=== PATIENT | male | born 1945 | race Caucasian/White ===

== ENCOUNTER 2021-01-27 16:43 | Inpatient (IN) ==
--- NOTE | 2021-01-27 17:06 | Emergency Department Note ---
HPI <Diamond Encarnacion PA-C - Last Filed: 01/27/21 20:32> General Chief complaint: Extremity Injury, Lower Stated complaint: hip pain Time Seen by Provider: 01/27/21 17:04 Source: EMS Mode of arrival: EMS Limitations: physical limitation History of Present Illness HPI Narrative: Narrative: Patient presents by EMS with a complaint of fall. Patient lost his balance which caused him to fall. He did strike the right side of his face and is having right hip pain. He was unable to get up and was lying on the ground for a couple of hours prior to being discovered. EMS noted pain to the proximal right leg and hip on palpation. No obvious deformity. They did not note any internal or external rotation. He has abrasions to his hands and an abrasion with hematoma to the right forehead. He did not lose consciousness. He is complaining to pain in the right hip. He is also having some right rib pain but that is from a fall a few days ago. Pain is primarily in the right ribs to the back. He does not recall when his last tetanus shot was. It has been more than 5 years Related Data Home Medications Medication Instructions Recorded Confirmed aspirin 81 mg PO QDAY 05/04/20 01/28/21 atorvastatin 20 mg PO QDAY 05/04/20 01/28/21 finasteride 5 mg PO DAILY 05/04/20 01/28/21 fluoxetine 20 mg PO DAILY 05/04/20 01/28/21 lisinopril 10 mg PO QDAY 05/04/20 01/28/21 loperamide [Imodium A-D] 2 mg PO QID PRN 05/04/20 01/28/21 melatonin 5 mg PO HS PRN 05/04/20 01/28/21 nitroglycerin 0.4 mg SUBLINGUAL Q5M PRN 05/04/20 01/28/21 omeprazole 20 mg PO DAILY 05/04/20 01/28/21 oxycodone-acetaminophen [Percocet] 1 tab PO Q6H PRN 05/04/20 01/28/21 alfuzosin 10 mg tablet,extended 10 mg PO QDAY 07/30/20 09/03/20 release 24 hr duloxetine 60 mg capsule,delayed See Rx Instructions PO .COMPLEX 07/30/20 release multivitamin 1 tab PO QDAY 07/30/20 09/03/20 pramipexole 0.125 mg tablet See Rx Instructions PO .COMPLEX 07/30/20 01/28/21 lisinopril 20 mg tablet 10 mg PO tab 09/03/20 09/03/20 Previous Rx's Medication Instructions Recorded oxycodone-acetaminophen 1 tab PO Q6H PRN #12 tab 11/15/20 Allergies Allergy/AdvReac Type Severity Reaction Status Date / Time tamsulosin [From Flomax] Allergy Unknown Unknown Verified 01/27/21 16:51 Review of Systems <Diamond Encarnacion PA-C - Last Filed: 01/27/21 20:32> ROS ROS Narrative: Narrative: Pertinent positives and negatives as noted in HPI. All other systems reviewed and negative. PFSH <Diamond Encarnacion PA-C - Last Filed: 01/27/21 20:32> Narrative Patient History Narrative: Narrative: Medical/Surgical/Family History All Active Problems (Updated 01/27/21 @ 20:32 by Diamond Encarnacion PA-C) Back pain (Acute) Closed fracture of right hip (Acute) Cavitary lesion of lung (Acute) Lesion of left lung (Acute) RLS (restless legs syndrome) (Chronic) Drug-induced hepatotoxicity (Chronic) BPH (benign prostatic hyperplasia) (Chronic) Insomnia (Chronic) Hyperlipidemia (Chronic) Atherosclerosis of [place] coronary artery without angina pectoris (Chronic) VALENTINO (dyspnea on exertion) (Chronic) COPD (chronic obstructive pulmonary disease) (Chronic) Abdominal aneurysm without mention of rupture (Chronic) 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) Opioid dependence (Chronic) Spinal stenosis (Chronic) Depression (Chronic) Hypertension (Chronic) Basal cell carcinoma of skin (Chronic) Chronic bronchitis (Chronic) GERD (gastroesophageal reflux disease) (Chronic) Low back pain (Chronic) Chronic pain (Chronic) halfway (current) use of opiate analgesic (Chronic) Cigarette smoker (Chronic) History of myocardial infarction (Chronic) Atypical chest pain (Chronic) Medical History Abdominal aneurysm without mention of rupture Atherosclerosis of [place] coronary artery without angina pectoris Basal cell carcinoma of skin BPH (benign prostatic hyperplasia) Chronic bronchitis Chronic pain Cigarette smoker COPD (chronic obstructive pulmonary disease) Degenerative joint disease of low back Depression VALENTINO (dyspnea on exertion) Drug-induced hepatotoxicity GERD (gastroesophageal reflux disease) History of myocardial infarction Hyperlipidemia Hypertension 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 Skin: Warm. Dry. No rash. Normal color. Head: Abrasion with dried blood and hematoma to the right forehead. No crepitus. Eyes: PERRL. EOMI. no hyphema Mouth: Dry mucous membranes. Neck: Good ROM. No meningeal signs. Supple. No step-offs or crepitus on palpation. No tenderness Cardiovascular: Regular rate and rhythm. No murmur. Respiratory: No respiratory distress. Breath sounds equal. Gastrointestinal: Abdomen soft. No tenderness. No distention. Normal bowel sounds. No rebound tenderness or guarding. Back: Mild midline tenderness to the thoracic spine. No step-off or obvious deformity. Tenderness palpation of the right posterior, inferior ribs. No crepitus or obvious deformity. No contusion or abrasion. Extremities: Tenderness to the right hip. No obvious deformity. No swelling. No erythema. No edema. Good peripheral pulses x 4. Abrasions to the dorsum of the right hand Neurological: No focal neurological deficits observed. Alert. Oriented x 3 General Limitations: physical limitation Course <Diamond Encarnacion PA-C - Last Filed: 01/27/21 20:32> Course Course Narrative: IVs established. Patient medicated with Dilaudid for pain. Tetanus booster given. Labs ordered reviewed CT of the brain, cervical spine, chest abdomen pelvis without contrast are ordered reported by radiology to be significant for right intertrochanteric hip fracture. There are old rib fractures identified but no acute fractures. Patient does have a cavernous spiculated mass in the right lower lung lobe as well as a noncavernous spiculated mass in the left lower lobe. I did inquire whether or not the patient had had any recent imaging of his lungs and was lower lungs bilaterally. He was not. He is counseled that this will need further evaluation after he is discharged from his hip surgery. Patient discussed with on-call orthopedic surgeon Dr. Mckeon who plans to take the patient to surgery at the end of his previously scheduled cases tomorrow. Given the patient's prior history of COPD as well as the CT of the chest patient is also discussed with the hospitalist for admission. He is also accepted the hospital service. Vital Signs Vital signs: Vital Signs Temperature 97.9 F 01/27/21 16:44 Pulse Rate 89 01/27/21 16:44 Respiratory Rate 18 01/27/21 16:44 Pulse Oximetry (%) 96 01/27/21 16:44 Temperature 98.7 F 01/27/21 21:40 Pulse Rate 89 01/27/21 21:40 Respiratory Rate 26 H 01/27/21 21:40 Blood Pressure 169/73 01/27/21 21:40 Pulse Oximetry (%) 90 01/27/21 21:40 [facility] <Diamond Encarnacion PA-C - Last Filed: 01/27/21 20:32> [facility] Narrative Medical decision making narrative: Narrative: Lab Data Result diagrams: 01/27/21 17:05 01/27/21 17:05 Labs: Lab Results 01/27/21 01/27/21 01/27/21 Range/Units 17:05 17:05 17:05 WBC 15.5 H (4.5-11.0) K/mcL RBC 4.69 (4.63-6.08) M/mcL Hgb 13.5 L (13.7-17.5) g/dL Hct 39.0 L (40.1-51.0) % POC Hct 42 (41-55) % MCV 83.2 (80.0-100.0) fL MCH 28.8 (26.0-34.0) pg MCHC 34.6 (31.0-36.0) g/dL RDW 17.0 H (11.5-14.5) % Plt Count 384 (140-440) K/mcL MPV 8.9 (7.4-10.4) fL Neut % (Auto) 88.9 H (38.0-78.0) % Lymph % (Auto) 4.8 L (15.5-49.0) % Yell % (Auto) 5.9 (1.0-12.0) % Eos % (Auto) 0.2 (0.0-7.0) % Baso % (Auto) 0.2 (0.0-2.0) % Lymph # (Auto) 0.75 L (1.50-4.80) K/mcL Yell # (Auto) 0.91 H (0.10-0.90) K/mcL Eos # (Auto) 0.03 (0.00-0.70) K/mcL Baso # (Auto) 0.03 (0.00-0.30) K/mcL Absolute Neutrophils 13.77 H (1.80-8.00) K/mcL POC Sodium 135 (133-145) mEq/L Sodium 133 (133-145) mmol/L POC Potassium 3.2 L (3.3-5.1) mEql/L Potassium 3.1 L (3.3-5.1) mmol/L POC Chloride 97 (96-108) mEq/L Chloride 95 L (96-108) mmol/L Carbon Dioxide 24 (22-30) mmol/L POC Total CO2 24 (22-30) mmol/L Anion Gap 14.0 (8.0-16.0) POC BUN 4 L (6-20) mg/dL BUN 5 L (8-23) mg/dL Creatinine 0.7 (0.7-1.2) mg/dL POC Creatinine 0.6 (0.6-1.2) mg/dL GFR Calculation 92 Glucose 91 (70-105) mg/dL POC Glucose 90 (70-105) mg/dL Calcium 9.4 (8.6-10.4) mg/dL POC WB Ioniz Calcium 1.13 L (1.16-1.32) mmEq/L Total Bilirubin 0.9 (0.1-1.0) mg/dL AST 22 (<40) U/L ALT 14 (<40) U/L Alkaline Phosphatase 142 H (39-117) U/L Troponin T < 0.01 (<0.03) ng/mL NT-Pro-B Natriuret Pep (<450.0) pg/mL Total Protein 6.9 (5.9-8.4) gm/dL Albumin 3.8 (3.2-5.2) gm/dL Globulin 3.1 (2.2-3.7) gm/dL Albumin/Globulin Ratio 1.2 (1.0-2.3) 01/27/21 Range/Units 17:05 WBC (4.5-11.0) K/mcL RBC (4.63-6.08) M/mcL Hgb (13.7-17.5) g/dL Hct (40.1-51.0) % POC Hct (41-55) % MCV (80.0-100.0) fL MCH (26.0-34.0) pg MCHC (31.0-36.0) g/dL RDW (11.5-14.5) % Plt Count (140-440) K/mcL MPV (7.4-10.4) fL Neut % (Auto) (38.0-78.0) % Lymph % (Auto) (15.5-49.0) % Yell % (Auto) (1.0-12.0) % Eos % (Auto) (0.0-7.0) % Baso % (Auto) (0.0-2.0) % Lymph # (Auto) (1.50-4.80) K/mcL Yell # (Auto) (0.10-0.90) K/mcL Eos # (Auto) (0.00-0.70) K/mcL Baso # (Auto) (0.00-0.30) K/mcL Absolute Neutrophils (1.80-8.00) K/mcL POC Sodium (133-145) mEq/L Sodium (133-145) mmol/L POC Potassium (3.3-5.1) mEql/L Potassium (3.3-5.1) mmol/L POC Chloride (96-108) mEq/L Chloride (96-108) mmol/L Carbon Dioxide (22-30) mmol/L POC Total CO2 (22-30) mmol/L Anion Gap (8.0-16.0) POC BUN (6-20) mg/dL BUN (8-23) mg/dL Creatinine (0.7-1.2) mg/dL POC Creatinine (0.6-1.2) mg/dL GFR Calculation Glucose (70-105) mg/dL POC Glucose (70-105) mg/dL Calcium (8.6-10.4) mg/dL POC WB Ioniz Calcium (1.16-1.32) mmEq/L Total Bilirubin (0.1-1.0) mg/dL AST (<40) U/L ALT (<40) U/L Alkaline Phosphatase (39-117) U/L Troponin T (<0.03) ng/mL NT-Pro-B Natriuret Pep 1103.0 H (<450.0) pg/mL Total Protein (5.9-8.4) gm/dL Albumin (3.2-5.2) gm/dL Globulin (2.2-3.7) gm/dL Albumin/Globulin Ratio (1.0-2.3) ED POC Tests ED POC Tests: KARL - SARS Antigen Negative Discharge Plan Patient/Caregiver Discharge Instructions Pt seen by REVENUE ACCOUNTANT/PA only: Yes Clinical Impression: Cavitary lesion of lung, Lesion of left lung Closed fracture of right hip Qualifiers: Encounter type: initial encounter Qualified Code(s): S72.001A - Fracture of unspecified part of neck of right femur, initial encounter for closed fracture Patient Disposition: Xfer As Outpt/Obs ([facility]) Discharge Date/Time: 01/27/21 21:46
[2021-01-27] MEDS ORDERED: 0.9 % SODIUM CHLORIDE 1,000 ML IV ONE (17:10)
[2021-01-27] MEDS ORDERED: DIPH,PERTUSS(ACELL),TET VAC/PF 0.5 ML SYRINGE IM ONE (17:10)
[2021-01-27 17:23] LABS: POC Blood Urea Nitrogen 4 mg/dL (6-20); POC CO2 24 mmol/L (22-30); POC Calcium, Ionized 1.13 mmEq/L (1.16-1.32); POC Chloride 97 mEq/L (96-108); POC Creatinine 0.6 mg/dL (0.6-1.2); POC Glucose, Random 90 mg/dL (70-105); POC Hematocrit 42 % (41-55); POC Potassium 3.2 mEql/L (3.3-5.1); POC Sodium 135 mEq/L (133-145)
[2021-01-27] MEDS: HYDROmorphone 0.5 MG/0.5 ML SYRINGE IV PRN ×3 (17:34→21:54)
[2021-01-27 17:51] LABS: Basophils # (Auto) 0.03 K/mcL (0.00-0.30); Basophils % (Auto) 0.2 % (0.0-2.0); Eosinophils # (Auto) 0.03 K/mcL (0.00-0.70); Eosinophils % (Auto) 0.2 % (0.0-7.0); Hemoglobin 13.5 g/dL (13.7-17.5); Lymphocytes # (Auto) 0.75 K/mcL (1.50-4.80); Lymphocytes % (Auto) 4.8 % (15.5-49.0); Mean Cell Volume 83.2 fL (80.0-100.0); Mean Corpuscular HGB Conc 34.6 g/dL (31.0-36.0); Mean Platelet Volume 8.9 fL (7.4-10.4); Monocytes # (Auto) 0.91 K/mcL (0.10-0.90); Monocytes % (Auto) 5.9 % (1.0-12.0); Neutrophils % (Auto) 88.9 % (38.0-78.0); Platelet Count 384 K/mcL (140-440); RBC 4.69 M/mcL (4.63-6.08); WBC 15.5 K/mcL (4.5-11.0)
[2021-01-27 18:10] LABS: ALT/SGPT 14 U/L (<40); AST/SGOT 22 U/L (<40); Albumin 3.8 gm/dL (3.2-5.2); Albumin/Globulin Ratio 1.2 (1.0-2.3); Alkaline Phosphatase 142 U/L (39-117); Bilirubin,Total 0.9 mg/dL (0.1-1.0); Blood Urea Nitrogen 5 mg/dL (8-23); Calcium 9.4 mg/dL (8.6-10.4); Carbon Dioxide 24 mmol/L (22-30); Chloride 95 mmol/L (96-108); Globulin 3.1 gm/dL (2.2-3.7); Glomerular Filtration Rate 92; Glucose 91 mg/dL (70-105)
--- NOTE | 2021-01-27 18:36 | Cat Scan Report ---
History: Fell with multiple injuries and right hip pain TECHNIQUE: The patient was imaged without contrast in axial plane at 2.5 mm intervals from the thoracic inlet through the hips. Sagittal coronal and axial MIPS images were created. The radiation exposure was limited using dose reduction technology. FINDINGS: CHEST: Patient has moderate COPD and there is bronchiectasis. There is bronchiectasis is in the upper lobes. There is a peripheral infiltrate at the right apex measuring approximately 3 cm in size with several air bronchograms within it. This could be a combination of scar and inflammation. Posteriorly in the midportion left lower lobe on axial image #76 there is a well-circumscribed homogeneous noncalcified nodule which measures 9 x 12 mm. In the lateral basal segment of the right lower lobe there is a peripheral spiculated lesion with central cavitation. It measures 2.5 x 3.3 cm. No pneumothorax or pleural effusion are present. There is mucus plugging in several bronchi is also moderate amount mucous in the trachea and mainstem bronchi. The heart is normal in size and contour. There is no mediastinal hemorrhage. Large amount calcified plaque is present in the coronary arteries. No fracture is seen within the thorax. Abdomen and pelvis: Evaluation of abdominal organs without contrast is somewhat limited. There is no evidence of lacerated abdominal organ. Liver and spleen are normal in size. Gallbladder is relatively small. It may be a small stone in the neck. Bile ducts are nondilated. There is atrophy of the pancreas. The adrenals and kidneys are normal. There is a fusiform aneurysm of the abdominal aorta which measures 3.7 x 4.7 cm. There is an endograft in the aorta extending from the level renal arteries to the iliac arteries. No intra-abdominal hematoma is present and there is no free intra-abdominal air. The bowel pattern is normal. Urinary bladder is distended but appears normal. The prostate is moderately enlarged. There is an acute intertrochanteric fracture of the proximal right femur. The femoral head is normal. No pelvic fractures present. There is degenerative disc disease and arthritis at multiple levels in the spine. IMPRESSION: Acute intertrochanteric fracture of the right proximal femur. No acute abdominal injury. Abdominal aorta aneurysm which has been treated with an endograft. COPD with scarring and bronchiectasis Spiculated lesion in the right lower lobe with central cavitation which could be due to scar, infection or tumor. Nonspecific 9 x 12 mm nodule in the left lower lobe Diamond Encarnacion was called with the report Interpreted and Authenticated by: Zack Rice 01/27/21
--- NOTE | 2021-01-27 18:37 | Cat Scan Report ---
History: Fell with head injury TECHNIQUE: The brain was imaged without contrast in axial plane at 2.5 mm intervals. The radiation exposure was limited using dose reduction technology. FINDINGS: There is mild soft tissue swelling in the scalp lateral to the right frontal bone. No skull fractures present. There is no intracranial hemorrhage, cerebral edema or infarct or mass effect. There are stable age-related degenerative changes with mild atrophy and mild white matter disease in the frontal and parietal lobes. The ventricles are normal in size line for atrophy. There is no abnormal extra-axial fluid collection. Comparison with the prior exam done on 09/23/20 shows no change except for the scalp swelling. IMPRESSION: Age-related degenerative changes and no evidence of acute brain injury Mild scalp swelling on the right side Diamond Encarnacion was called with the report Interpreted and Authenticated by: Zack Rice 01/27/21
--- NOTE | 2021-01-27 18:37 | Cat Scan Report ---
History: Fell with neck injury TECHNIQUE: The neck was imaged without contrast in axial plane at 2.5 mm intervals from the skull base to the upper thoracic spine. Sagittal and coronal reformats were created. The radiation exposure was limited using dose reduction technology. FINDINGS: There is no fracture or evidence of acute neck injury. There is chronic degenerative disc disease and arthritis at multiple levels. Is also moderate arthritis at the articulation of the odontoid and anterior ring of C1. Moderate to severe disc space narrowing is present at C4-5, C5-6, C6-7, C7-T1 and T1-2. There were medium-size anterior osteophytes in the mid cervical spine. There is also arthritis in the facets and spurring of the uncinate processes from C2-3 through C6-7. The greatest degeneration is at C4-5 and there is moderate spinal canal stenosis at that level. There is also spurring of the uncinate processes causing stenosis of the neural foramina bilaterally. There is severe foraminal stenosis on the right at C3-4, bilaterally at C4-5 and moderate stenosis bilaterally at C5-C6. No paraspinal hematoma is present. Patient has moderate COPD in both lung apices. There is consolidated lung parenchyma in the right apex with several air bronchograms. Consolidation could be due to inflammation or scar. IMPRESSION: No fracture Advanced degenerative disc disease and arthritis throughout the neck with moderate spinal canal stenosis at C4-5 Moderate COPD Diamond Encarnacion was called with the report Interpreted and Authenticated by: Zack Rice 01/27/21
--- NOTE | 2021-01-27 20:24 | Internal Med History&Physical ---
HPI History of Present Illness Patient information: Note initiated : 01/27/21 at 8:05 pm Service Date, if different from initiated Date: [] Patient: Curt Hall a 75 y/o M admitted on for hip pain. Chief Complaint: [hip pain] History of present illness: Mr. Hall is a 75 year old male with a history of hypertension, CAD, COPD, AAA s/p endograft, GERD, BPH, restless legs syndrome, spinal stenosis who is on chronic oral opioids who had a mechanical fall complicated by a right intertrochanteric proximal femur fracture. The patient hit his head when he fell. In the ED the patient underwent a minor trauma workup with noncontrast CT head, cervical spine, chest, abdomen, pelvis. In addition to the femur fracture the workup revealed a 2.5 x 3.3 cm right lower lobe peripheral spiculated lesion with central cavitation concerning for malignancy or infection. There was also a nonspecific 9/1.2 cm nodule in the left lower lung lobe. Vitals were relatively stable. CBC is remarkable for leukocytosis, chemistry panel showed mild hypokalemia. The ED provider, Diamond Encarnacion, discussed the patient with orthopedic surgery who agreed to perform surgical correction. [facility] medicine was asked to admit the patient for hip fracture with orthopedic surgery consulting. Review of systems Constitutional: no fevers, positive for unintentional weight loss Eyes: no vision changes or pain Cardiovascular: no chest pain, no palpitations Respiratory: no cough or dyspnea Gastrointestinal: no abdominal pain, no nausea, vomiting, or diarrhea Genitourinary: no dysuria or difficulty voiding Musculoskeletal: positive for right hip pain Integumentary: forehead laceration Neurological: no focal weakness or numbness Psychiatric: no anxiety or depression Physical exam General: thin chronically ill appearing male in no distress Head: laceration on right forehead Eyes: normal appearance, no scleral icterus. Neck: full ROM Respiratory: no respiratory distress. Cardiovascular: normal rate and rhythm, S1, S2. GI/Abdominal: soft, nontender, no guarding. Extremities: right hip tenderness, externally rotated right lower extremity Neurological: CN II-XII intact, intact motor, intact sensation. Psychiatric: normal mood. Skin: warm, normal color PFSH PFSH All Active Problems (Updated 01/27/21 @ 20:32 by Diamond Encarnacion PA-C) Back pain (Acute) Closed fracture of right hip (Acute) Cavitary lesion of lung (Acute) Lesion of left lung (Acute) RLS (restless legs syndrome) (Chronic) Drug-induced hepatotoxicity (Chronic) BPH (benign prostatic hyperplasia) (Chronic) Insomnia (Chronic) Hyperlipidemia (Chronic) Atherosclerosis of [place] coronary artery without angina pectoris (Chronic) VALENTINO (dyspnea on exertion) (Chronic) COPD (chronic obstructive pulmonary disease) (Chronic) Abdominal aneurysm without mention of rupture (Chronic) 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) Opioid dependence (Chronic) Spinal stenosis (Chronic) Depression (Chronic) Hypertension (Chronic) Basal cell carcinoma of skin (Chronic) Chronic bronchitis (Chronic) GERD (gastroesophageal reflux disease) (Chronic) Low back pain (Chronic) Chronic pain (Chronic) 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) Cigarette smoker (Chronic) History of myocardial infarction (Chronic) Atypical chest pain (Chronic) Medical History Abdominal aneurysm without mention of rupture Atherosclerosis of [place] coronary artery without angina pectoris Basal cell carcinoma of skin BPH (benign prostatic hyperplasia) Chronic bronchitis Chronic pain Cigarette smoker COPD (chronic obstructive pulmonary disease) Degenerative joint disease of low back Depression VALENTINO (dyspnea on exertion) Drug-induced hepatotoxicity GERD (gastroesophageal reflux disease) History of myocardial infarction Hyperlipidemia Hypertension 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 Low back pain Opioid dependence RLS (restless legs syndrome) Spinal stenosis Surgical History History of coronary artery stent placement single; RCA 80% History of skin cancer skin cancer removal Family History Other No pertinent family history Social History (Updated 08/27/20 @ 15:38 by Millie Rivera) marital status: education level: college occupational status: retired smoking status: Current every day smoker alcohol intake frequency: does not drink substance use type: marijuana MEDS/ALLERGIES Home Medications and Allergies Home Medications Medication Instructions Recorded Confirmed Type aspirin 81 mg PO QDAY 05/04/20 09/03/20 History atorvastatin 20 mg PO QDAY 05/04/20 09/03/20 History finasteride 5 mg PO DAILY 05/04/20 09/03/20 History fluoxetine 20 mg PO DAILY 05/04/20 09/03/20 History lisinopril 10 mg PO QDAY 05/04/20 09/03/20 History loperamide [Imodium A-D] 2 mg PO QID PRN 05/04/20 09/03/20 History melatonin 5 mg PO HS PRN 05/04/20 09/03/20 History nitroglycerin 0.4 mg SUBLINGUAL Q5M PRN 05/04/20 09/03/20 History omeprazole 20 mg PO DAILY 05/04/20 09/03/20 History oxycodone-acetaminophen [Percocet] 1 tab PO Q6H PRN 05/04/20 09/03/20 History alfuzosin 10 mg tablet,extended 10 mg PO QDAY 07/30/20 09/03/20 History release 24 hr duloxetine 60 mg capsule,delayed See Rx Instructions PO .COMPLEX 07/30/20 09/03/20 History release multivitamin 1 tab PO QDAY 07/30/20 09/03/20 History pramipexole 0.125 mg tablet See Rx Instructions PO .COMPLEX 07/30/20 09/03/20 History lisinopril 20 mg tablet 10 mg PO tab 09/03/20 09/03/20 History oxycodone-acetaminophen 1 tab PO Q6H PRN #12 tab 11/15/20 Rx Allergies Allergy/AdvReac Type Severity Reaction Status Date / Time tamsulosin [From Flomax] Allergy Unknown Unknown Verified 01/27/21 16:51 EXAM Constitutional Vitals: Temp Pulse Resp BP Pulse Ox 97.9 F 94 H 22 155/94 97 01/27/21 16:44 01/27/21 19:17 01/27/21 19:17 01/27/21 19:17 01/27/21 19:17 DATA Data Completed and Pending Labs: Labs from last 24 hours 01/27/21 01/27/21 17:05 17:05 WBC 15.5 H RBC 4.69 Hgb 13.5 L Hct 39.0 L POC Hct 42 MCV 83.2 MCH 28.8 MCHC 34.6 RDW 17.0 H Plt Count 384 MPV 8.9 Neut % (Auto) 88.9 H Lymph % (Auto) 4.8 L [place] % (Auto) 5.9 Eos % (Auto) 0.2 Baso % (Auto) 0.2 Lymph # (Auto) 0.75 L [place] # (Auto) 0.91 H Eos # (Auto) 0.03 Baso # (Auto) 0.03 Absolute Neutrophils 13.77 H POC Sodium 135 Sodium 133 POC Potassium 3.2 L Potassium 3.1 L POC Chloride 97 Chloride 95 L Carbon Dioxide 24 POC Total CO2 24 Anion Gap 14.0 POC BUN 4 L BUN 5 L Creatinine 0.7 POC Creatinine 0.6 GFR Calculation 92 Glucose 91 POC Glucose 90 Calcium 9.4 POC WB Ioniz Calcium 1.13 L Total Bilirubin 0.9 AST 22 ALT 14 Alkaline Phosphatase 142 H Total Protein 6.9 Albumin 3.8 Globulin 3.1 Albumin/Globulin Ratio 1.2 A/P Narrative A/P Narrative: Assessment: 75 year old male with a history of hypertension, CAD, COPD, AAA s/p endograft, GERD, BPH, restless legs syndrome, spinal stenosis on chronic oral opioids had a mechanical fall that was complicated by a right intertrochanteric proximal femur fracture. Workup in the ED included a noncontrast CT chest that showed a 2.5 x 3.3 cm right lower lobe peripheral spiculated lesion with central cavitation concerning for malignancy or infection. #Right intertrochanteric femur fracture #Right lower lobe lesion concerning for malignancy vs infection #Hypoxia, possibly chronic #Leukocytosis likely stress induced #COPD #Bronchiectasis #Coronary artery disease, stable #Essential hypertension #AAA s/p endograft #Chronic pain on opioid (Percocet) #GERD #BPH #Unintentional weight loss #Tobacco use disorder Plan -Ok to proceed with surgery from medicine perspective however patient will be higher risk due to CAD and COPD. -Continue Aspirin (given higher risk of perioperative UT) and lisinopril. -Home medications reconciliation then resume essential meds. -Oxygen supplementation s/ goal sats 88-92%. -Albuterol nebs prn. -Potassium supplement. -Check procalcitonin, follow CBC -Analgesics prn. -Nicotine replacement. -Orthopedic surgery consult-Dr. Mckeon. -NPO at midnight. -PT consult -DVT ppx: per orthopedic surgery -Code status: DNR -Disposition: TBD, pulmonology follow up for lung lesion concerning for malignancy Time Spent With Patient Time: Total time spent is greater than 50% in coordination of care (as documented) at patient's floor/unit and/or counseling patient:
[2021-01-27] MEDS ORDERED: NALOXONE HCL 0.4 MG/ML VIAL IV PRN (21:46)
[2021-01-27] MEDS ORDERED: oxyCODONE/APAP 5/325MG TABLET PO PRN (21:46)
[2021-01-27] MEDS ORDERED: LABETALOL 5 MG/ML ML IV PRN (21:46)
[2021-01-27] MEDS ORDERED: ALBUTEROL SULFATE 2.5 MG/3 ML NEBULIZER NEB PRN (21:46)
[2021-01-27] MEDS ORDERED: ONDANSETRON 4 MG/2 ML VIAL IV PRN (21:46)
[2021-01-27] MEDS ORDERED: POTASSIUM CHLORIDE 20 MEQ TABLET PO ONE (21:46)
[2021-01-27] MEDS: 0.9 % SODIUM CHLORIDE 1,000 ML IV SCH (22:50)
[2021-01-28] MEDS: HYDROmorphone 0.5 MG/0.5 ML SYRINGE IV PRN ×3 (01:58→08:20)
[2021-01-28] MEDS: SENNOSIDES 1 TABLET PO SCH ×2 (01:58→20:48)
[2021-01-28] MEDS: 0.9 % SODIUM CHLORIDE 10 ML SYRINGE IV SCH ×4 (01:59→20:49)
[2021-01-28] MEDS ORDERED: IPRATROPIUM/ALBUTEROL 3 ML AMPUL.NEB NEB PRN ×2 (08:00→15:28)
[2021-01-28] MEDS ORDERED: SCOPOLAMINE 1 PATCH PATCH TOPICAL PRN (08:00)
[2021-01-28 08:26] LABS: Blood Urea Nitrogen 7 mg/dL (8-23); Calcium 8.6 mg/dL (8.6-10.4); Carbon Dioxide 22 mmol/L (22-30); Chloride 97 mmol/L (96-108); Glomerular Filtration Rate 98; Glucose 59 mg/dL (70-105)
[2021-01-28] MEDS ORDERED: POTASSIUM CHLORIDE 40 MEQ in DEXTROSE 5% IN WATER 500 ML IV ONE (10:00)
[2021-01-28] MEDS: ASPIRIN 81 MG TAB.CHEW CHEWED SCH (10:54)
[2021-01-28] MEDS: LISINOPRIL 20 MG TABLET PO SCH (10:54)
[2021-01-28] MEDS ORDERED: ceFAZolin 2 GM in DEXTROSE 5% IN WATER 50 ML IV SCH (14:30)
--- NOTE | 2021-01-28 14:30 | Orthopedic Consult Note ---
HPI Data of Consult Consult date: 01/28/21 Primary Care Provider: Becki Lopez Consult Narrative Patient Information: Note initiated : 01/28/21 at 2:23 pm Service Date, if different from initiated Date: [] Patient: Curt Hall 75 y/o M admitted on 01/27/21 for hip pain. Chief Complaint: Right peritrochanteric hip fracture Patient had a fall and then was unable to ambulate. A CT scan of the pelvis was performed. This identified a right peritrochanteric fracture femoral neck. Surgical fixation was advised. Patient consented the procedure aware and understanding of the risk. cc:: CC: Marcel Pearce MD Review of Systems Review of systems: 10 point review of systems was performed and was found normal except those mentioned on the HPI. Constitutional Constitutional: Present as per HPI PFSH PFSH All Active Problems (Updated 01/27/21 @ 20:32 by Diamond Encarnacion PA-C) Back pain (Acute) Closed fracture of right hip (Acute) Cavitary lesion of lung (Acute) Lesion of left lung (Acute) RLS (restless legs syndrome) (Chronic) Drug-induced hepatotoxicity (Chronic) BPH (benign prostatic hyperplasia) (Chronic) Insomnia (Chronic) Hyperlipidemia (Chronic) Atherosclerosis of [place] coronary artery without angina pectoris (Chronic) VALENTINO (dyspnea on exertion) (Chronic) COPD (chronic obstructive pulmonary disease) (Chronic) Abdominal aneurysm without mention of rupture (Chronic) 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) Opioid dependence (Chronic) Spinal stenosis (Chronic) Depression (Chronic) Hypertension (Chronic) Basal cell carcinoma of skin (Chronic) Chronic bronchitis (Chronic) GERD (gastroesophageal reflux disease) (Chronic) Low back pain (Chronic) Chronic 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 (Chronic) 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) Cigarette smoker (Chronic) History of myocardial infarction (Chronic) Atypical chest pain (Chronic) Medical History Abdominal aneurysm without mention of rupture Atherosclerosis of [place] coronary artery without angina pectoris Basal cell carcinoma of skin BPH (benign prostatic hyperplasia) Chronic bronchitis Chronic pain Cigarette smoker COPD (chronic obstructive pulmonary disease) Degenerative joint disease of low back Depression VALENTINO (dyspnea on exertion) Drug-induced hepatotoxicity GERD (gastroesophageal reflux disease) History of myocardial infarction Hyperlipidemia Hypertension Insomnia detention (current) use of opiate analgesic Low back pain Opioid dependence RLS (restless legs syndrome) Spinal stenosis Surgical History History of coronary artery stent placement single; RCA 80% History of skin cancer skin cancer removal Family History Other No pertinent family history Social History (Updated 08/27/20 @ 15:38 by Millie Rivera) marital status: education level: college occupational status: retired smoking status: Current every day smoker alcohol intake frequency: does not drink substance use type: marijuana MEDS/ALLERGIES Home Medications and Allergies Home Medications Medication Instructions Recorded Confirmed Type aspirin 81 mg PO QDAY 05/04/20 01/28/21 History atorvastatin 20 mg PO QDAY 05/04/20 01/28/21 History finasteride 5 mg PO DAILY 05/04/20 01/28/21 History fluoxetine 20 mg PO DAILY 05/04/20 01/28/21 History lisinopril 10 mg PO QDAY 05/04/20 01/28/21 History loperamide [Imodium A-D] 2 mg PO QID PRN 05/04/20 01/28/21 History melatonin 5 mg PO HS PRN 05/04/20 01/28/21 History nitroglycerin 0.4 mg SUBLINGUAL Q5M PRN 05/04/20 01/28/21 History omeprazole 20 mg PO DAILY 05/04/20 01/28/21 History oxycodone-acetaminophen [Percocet] 1 tab PO Q6H PRN 05/04/20 01/28/21 History alfuzosin 10 mg tablet,extended 10 mg PO QDAY 07/30/20 09/03/20 History release 24 hr duloxetine 60 mg capsule,delayed See Rx Instructions PO .COMPLEX 07/30/20 01/28/21 History release multivitamin 1 tab PO QDAY 07/30/20 09/03/20 History pramipexole 0.125 mg tablet See Rx Instructions PO .COMPLEX 07/30/20 01/28/21 History lisinopril 20 mg tablet 10 mg PO tab 09/03/20 09/03/20 History Allergies Allergy/AdvReac Type Severity Reaction Status Date / Time tamsulosin [From Flomax] Allergy Unknown Unknown Verified 01/27/21 16:51 Physical Examination Narrative Narrative: Narrative: Patient was seen and examined. Please see admission note for detailed exam. He was alert and oriented in bed. He had a mild cachectic appearance. Any movement of the right leg produced significant pain. A/P Time Spent With Patient Time: Total time spent is greater than 50% in coordination of care (as documented) at patient's floor/unit and/or counseling patient: Impression: Right basicervical/peritrochanteric hip fracture. Plan: Surgical fixation was advised in the form of a intramedullary nail with a cephalad screw. Main advantage of surgery is to permit more rapid mobilization and reduce the pain from the fracture. Risks of surgery were discussed in detail but include heart attack, stroke, , fixation failure, damage to the nerves and arteries and muscles in the leg and hip or infection. Patient understands these risks and wished to proceed with surgery.
[2021-01-28] MEDS ORDERED: MAGNESIUM SULFATE 2 GM/50 ML BAG IV ONE (14:44)
[2021-01-28] MEDS ORDERED: fentaNYL 100 MCG/2 ML VIAL IV ONE (14:44)
[2021-01-28] MEDS ORDERED: PROPOFOL 200 MG/20 ML VIAL IV ONE (14:44)
[2021-01-28] MEDS ORDERED: KETAMINE 50 MG/ML Syringe (ANEST) IV ONE (14:44)
[2021-01-28] MEDS ORDERED: PHENYLephrine 1 MG/10 ML SYRINGE (ANEST) ONE (14:44)
[2021-01-28] MEDS ORDERED: FLEETS ADULT ENEMA PR PRN (14:44)
[2021-01-28] MEDS ORDERED: BENZOCAINE/MENTHOL 1 LOZENGE PO PRN (14:44)
[2021-01-28] MEDS ORDERED: POLYETHYLENE GLYCOL 3350 17 GM PACKET PO PRN (14:44)
[2021-01-28] MEDS ORDERED: LIDOCAINE HCL/PF 100 MG/5 ML SYRINGE IV ONE (14:44)
[2021-01-28] MEDS ORDERED: GLYCOPYRROLATE 0.2 MG/ML VIAL IV ONE (14:44)
[2021-01-28] MEDS ORDERED: DEXAMETHASONE 10 MG/ML VIAL ONE (14:44)
[2021-01-28] MEDS ORDERED: TRANEXAMIC ACID 1,000 MG/10 ML VIAL ONE (14:44)
[2021-01-28] MEDS ORDERED: ONDANSETRON 4 MG/2 ML VIAL ONE (14:44)
[2021-01-28] MEDS ORDERED: LACTATED RINGERS 250 ML IV PRN (15:28)
[2021-01-28] MEDS ORDERED: METHOCARBAMOL 1,000 MG/10 ML VIAL IV PRN (15:28)
[2021-01-28] MEDS ORDERED: NALOXONE HCL 0.4 MG/ML VIAL IV PRN (15:28)
[2021-01-28] MEDS ORDERED: ACETAMINOPHEN 900 MG/90 ML BAG IV ONE (15:28)
[2021-01-28] MEDS ORDERED: LACTATED RINGERS 1,000 ML IV SCH (15:30)
--- NOTE | 2021-01-28 15:49 | Operative Note ---
Operative Note Operative Note: Pre-operative diagnosis: Right peritrochanteric femoral neck fracture Postoperative diagnosis: Same Procedure: Right hip short IM nail Implants: Synthes short TFN 10 mm, with 105 mm cephalad screw 38 mm distal locking screw Findings: Minimally displaced fracture near the base of the neck extending into the greater trochanter Complications: None Estimated Blood loss: 50 cc Assist: Rojas Feldman whose assistance was critical to safety and efficacy of the procedure DOS: January 28, 2021 Clinical note: The patient continues to suffer from the above mentioned diagnosis. He had a fall on concrete for reasons he is unsure of yesterday. He had pain in his hip. A CT scan of the pelvis was performed which revealed a minimally displaced peritrochanteric femur fracture. H&P: The patient was met outside the operating room and symptoms were reviewed and a physical exam performed. The patient demonstrated ongoing symptoms and signs as previously discussed. Risk versus benefits of the procedure were again discussed. Patient wished to proceed with the surgery aware and understanding of these risks. The operative site was marked. The patient was brought into the operating room and prepped and draped in the usual fashion supine on traction table. Traction was applied and the hip was imaged with fluoroscopy. This confirmed good reduction of the fracture both in AP and lateral views. We began by making an incision directly superior to the GT. A starting wire was introduced with the help of a starting awl directly on the tip of the GT using fluoroscopy to confirm trajectory. The canal was then opened with an entry reamer. A short IM nail of size scribed above was then introduced. This was advanced with a mallet until the trajectory of the cephalad screw is in line with the center of the femoral head. A guidewire was introduced to the center of the femoral head within 25 mm combined on both AP and lateral views of the apex. An incision was made on the lateral femur, and the lateral femoral cortex was opened through the trocar with a start drill, then the femoral neck was drilled in the usual fashion. A Cephalad screw was then inserted through the trocar into the center of the femoral head. Again using the guide a distal locking screw was inserted in the usual fashion securing the distal portion of the nail. Final fluoroscopy views were performed confirming the hip remained well reduced in the nail and locking screws were in good position. The wounds were then irrigated. They were closed with a heavy Vicryl suture for the deep layers followed by Monocryl and kena for the skin. A bulky dressing was applied. Patient was brought to PACU in good condition. They can be weightbearing as tolerated on that leg should follow-up with myself or the PA in 2 weeks time at [facility] for wound check and staple removal.
--- NOTE | 2021-01-28 15:49 | Internal Med Progress Note ---
SUBJECTIVE Subjective Patient information: Note initiated : 01/28/21 at 3:47 pm Service Date, if different from initiated Date: [] Patient: Curt Hall 75 y/o M admitted on 01/27/21 for hip pain. Chief Complaint: [] Interval history: Mr. Hall is a 75 year old male with a history of hypertension, CAD, COPD, AAA s/p endograft, GERD, BPH, restless legs syndrome, spinal stenosis who is on chronic oral opioids who had a mechanical fall complicated by a right intertrochanteric proximal femur fracture. The patient hit his head when he fell. In the ED the patient underwent a minor trauma workup with noncontrast CT head, cervical spine, chest, abdomen, pelvis. In addition to the femur fracture the workup revealed a 2.5 x 3.3 cm right lower lobe peripheral spiculated lesion with central cavitation concerning for malignancy or infection. There was also a nonspecific 9/1.2 cm nodule in the left lower lung lobe. Vitals were relatively stable. CBC is remarkable for leukocytosis, chemistry panel showed mild hypokalemia. The ED provider, Diamond Encarnacion, discussed the patient with orthopedic surgery who agreed to perform surgical correction. [facility] medicine was asked to admit the patient for hip fracture with orthopedic surgery consulting. 01/28: Orthopedic surgery planning for surgical correction of fracture today, replaced potassium, no major events overnight. Physical exam General: thin chronically ill appearing male in no distress Head: laceration on right forehead Eyes: normal appearance, no scleral icterus. Neck: full ROM Respiratory: no respiratory distress. Cardiovascular: normal rate and rhythm, S1, S2. GI/Abdominal: soft, nontender, no guarding. Extremities: right hip tenderness, externally rotated right lower extremity Neurological: CN II-XII intact, intact motor, intact sensation. Psychiatric: normal mood. Skin: warm, normal color Constitutional Vitals: Vital Signs Temp Pulse Resp BP Pulse Ox 97.6 F 82 18 150/87 94 01/28/21 11:29 01/28/21 11:29 01/28/21 11:29 01/28/21 11:29 01/28/21 11:29 Period Temp Pulse Resp BP Sys/Littlejohn Pulse Ox Last 24 Hr 97.4 F-98.7 F 80-96 16-30 131-191/73-127 90-98 Intake and Output 01/28/21 01/28/21 01/28/21 05:59 13:59 21:59 Output Total 250 2 Balance -250 -2 Intake & Output: Intake & Output 01/28/21 01/28/21 01/28/21 05:59 13:59 21:59 Output Total 250 2 Balance -250 -2 Output: Void Amount 250 # of times incontinent of urine 2 Other: Urine Appearance Clear Uretheral (Rolon) Clear Urine Color Bright Yellow Uretheral (Rolon) Light Jolanta OBJ DATA Labs CBC & Chem 7: 01/27/21 17:05 01/28/21 05:51 Labs: Abnormal Lab Results 01/28/21 01/28/21 01/27/21 05:51 05:51 17:05 WBC Hgb Hct RDW Neut % (Auto) Lymph % (Auto) Lymph # (Auto) [place]ha # (Auto) Absolute Neutrophils POC Potassium Potassium 2.9 L* Chloride POC BUN BUN 7 L Creatinine 0.6 L Glucose 59 L POC WB Ioniz Calcium Alkaline Phosphatase NT-Pro-B Natriuret Pep 1103.0 H Procalcitonin 0.25 H 01/27/21 01/27/21 17:05 17:05 WBC 15.5 H Hgb 13.5 L Hct 39.0 L RDW 17.0 H Neut % (Auto) 88.9 H Lymph % (Auto) 4.8 L Lymph # (Auto) 0.75 L [place] # (Auto) 0.91 H Absolute Neutrophils 13.77 H POC Potassium 3.2 L Potassium 3.1 L Chloride 95 L POC BUN 4 L BUN 5 L Creatinine Glucose POC WB Ioniz Calcium 1.13 L Alkaline Phosphatase 142 H NT-Pro-B Natriuret Pep Procalcitonin Meds: Medications Acetaminophen (Acetaminophen 325 Mg Tablet) 650 mg PO Q6HP PRN; Protocol PRN Reason: Per Pain Protocol/Fever > 101 Albuterol Sulfate (Albuterol Sulfate 2.5 Mg/3 Ml Nebulizer) 2.5 mg NEB Q2HP PRN PRN Reason: Shortness Of Breath Albuterol/Ipratropium (Ipratropium/Albuterol 3 Ml Ampul.Neb) 3 ml NEB ONCE PRN PRN Reason: Shortness Of Breath Stop: 01/28/21 22:00 Albuterol/Ipratropium (Ipratropium/Albuterol 3 Ml Ampul.Neb) 3 ml NEB ONCE PRN PRN Reason: Wheezing Stop: 01/28/21 17:28 Aspirin (Aspirin 81 Mg Tab.Chew) 81 mg CHEWED DAILY [facility] Last Admin: 01/28/21 10:54 Dose: 81 mg Documented by: Cefazolin Sodium (Cefazolin 1 Gm Vial) 2 gm IV Q8H [facility] Stop: 01/29/21 06:01 Enoxaparin Sodium (Enoxaparin 30 Mg/0.3 Ml Syringe) 30 mg SQ BID [facility] Fentanyl (Fentanyl 100 Mcg/2 Ml Vial) 25 mcg IV Q2M PRN PRN Reason: Pain Stop: 01/28/21 17:29 Hydromorphone HCl (Hydromorphone 0.5 Mg/0.5 Ml Syringe) 0.5 mg IV Q1HP PRN; Protocol PRN Reason: Per Pain Protocol Last Admin: 01/28/21 08:20 Dose: 0.5 mg Documented by: Sodium Chloride (Sodium Chloride 0.9%) 1,000 mls @ 75 mls/hr IV .[id number] [facility] Last Admin: 01/27/21 22:50 Dose: 75 mls/hr Documented by: Cefazolin Sodium 2 gm/ (Dextrose) 50 mls @ 100 mls/hr IV PREOP [facility]; Protocol Stop: 01/28/21 18:00 Last Admin: 01/28/21 14:38 Dose: 100 mls/hr Documented by: Lactated Ringer's (Lactated Ringers) 1,000 mls @ 75 mls/hr IV .[id number] [facility] Lactated Ringer's (Lactated Ringers) 1,000 mls @ 20 mls/hr IV .Q24H [facility] Stop: 01/28/21 17:29 Lactated Ringer's (Lactated Ringers) 1,000 mls @ 0 mls/hr IV PRN PRN PRN Reason: Hypovolemia Stop: 01/28/21 17:29 Acetaminophen (Ofirmev) 900 mg in 90 mls @ 180 mls/hr IV ONCE ONE Stop: 01/28/21 15:57 Ketorolac Tromethamine (Ketorolac 15 Mg/Ml Vial) 15 mg IV Q6HP PRN; Protocol PRN Reason: Per Pain Protocol Stop: 01/30/21 14:49 Labetalol HCl (Labetalol 5 Mg/Ml Ml) 10 mg IV Q10M PRN PRN Reason: Blood Pressure - High Last Admin: 01/28/21 07:35 Dose: 10 mg Documented by: Lisinopril (Lisinopril 20 Mg Tablet) 20 mg PO DAILY [facility] Last Admin: 01/28/21 10:54 Dose: 20 mg Documented by: Methocarbamol (Methocarbamol 1,000 Mg/10 Ml Vial) 750 mg IV Q6HP PRN PRN Reason: Muscle Spasm Methocarbamol (Methocarbamol 1,000 Mg/10 Ml Vial) 750 mg IV ONCE PRN PRN Reason: Muscle Spasm Stop: 01/28/21 17:29 Naloxone HCl (Naloxone Hcl 0.4 Mg/Ml Vial) 0.2 mg IV Q5M PRN PRN Reason: Opiate Reversal Naloxone HCl (Naloxone Hcl 0.4 Mg/Ml Vial) 0.1 mg IV Q2MIN PRN PRN Reason: Opiate Reversal Stop: 01/28/21 17:29 Ondansetron HCl (Ondansetron 4 Mg/2 Ml Vial) 4 mg IV Q6HP PRN PRN Reason: Nausea And Vomiting Oxycodone/Acetaminophen (Oxycodone/Apap 5/325mg Tablet) 1 tab PO Q4HP PRN; Pro tocol PRN Reason: Per Pain Protocol Polyethylene Glycol (Polyethylene Glycol 3350 17 Gm Packet) 17 gm PO DAILYP PRN PRN Reason: Constipation Scopolamine (Scopolamine 1 Patch Patch) 1 patch TOPICAL PREOP PRN PRN Reason: Nausea And Vomiting Stop: 01/28/21 22:00 Senna (Sennosides 1 Tablet) 2 tab PO HS [facility] Last Admin: 01/28/21 01:58 Dose: 2 tab Documented by: Sodium Biphosphate/Sodium Phosphate (Fleets Adult Enema) 1 dose MO Q3-4DAYS PRN PRN Reason: Constipation Sodium Chloride (0.9 % Sodium Chloride 10 Ml Syringe) 10 ml IV Q8 [facility] Last Admin: 01/28/21 15:45 Dose: Not Given Documented by: Throat Lozenges (Benzocaine/Menthol 1 Lozenge) 1 lozenge PO PRN PRN PRN Reason: Sore Throat A/P Narrative A/P Narrative: Assessment: 75 year old male with a history of hypertension, CAD, COPD, AAA s/p endograft, GERD, BPH, restless legs syndrome, spinal stenosis on chronic oral opioids had a mechanical fall that was complicated by a right intertrochanteric proximal femur fracture. Workup in the ED included a noncontrast CT chest that showed a 2.5 x 3.3 cm right lower lobe peripheral spiculated lesion with central cavitation concerning for malignancy or infection. #Right intertrochanteric femur fracture #Right lower lobe lesion concerning for malignancy vs infection #Hypoxia, possibly chronic #Leukocytosis likely stress induced #COPD #Bronchiectasis #Coronary artery disease, stable #Essential hypertension #AAA s/p endograft #Chronic pain on opioid (Percocet) #GERD #BPH #Unintentional weight loss #Tobacco use disorder Plan -Ok to proceed with surgery from medicine perspective however patient will be higher risk due to CAD and COPD. -Continue Aspirin (given higher risk of perioperative OR) and lisinopril. -Continue essential meds. -Oxygen supplementation s/ goal sats 88-92%. -Albuterol nebs prn. -Potassium supplement. -Analgesics prn. -Nicotine replacement. -Orthopedic surgery consult-Dr. Mckeon. -NPO for surgery. -PT consult -DVT ppx: per orthopedic surgery -Code status: DNR -Disposition: TBD, pulmonology follow up for lung lesion concerning for malignancy Time Spent With Patient Time: Total time spent is greater than 50% in coordination of care (as documented) at patient's floor/unit and/or counseling patient:
[2021-01-28] MEDS ORDERED: NITROGLYCERIN 0.4 MG TAB.SUBL SL PRN (15:52)
[2021-01-28] MEDS ORDERED: HYDROmorphone 0.5 MG/0.5 ML SYRINGE IV PRN (16:18)
[2021-01-28] MEDS: fentaNYL 100 MCG/2 ML VIAL IV PRN ×4 (16:21→16:35)
[2021-01-28] MEDS: METHOCARBAMOL 1,000 MG/10 ML VIAL IV PRN (16:27)
--- NOTE | 2021-01-28 16:37 | XRay Report ---
HISTORY: FINDINGS: IMPRESSION: 0.5 minutes of fluoroscopy time was used. Interpreted and Authenticated by: Zack Rice 01/28/21
[2021-01-28] MEDS: LACTATED RINGERS 1,000 ML IV SCH (16:41)
[2021-01-28] MEDS: METOPROLOL TARTRATE 5 MG/5 ML VIAL IV SCH ×2 (17:16→18:13)
--- NOTE | 2021-01-28 17:46 | XRay Report ---
HISTORY: Postop repair of intertrochanteric right hip fracture FINDINGS: There is a well aligned intertrochanteric fracture of the right hip. A femoral josé has been inserted along with a crossing pin extending into the femoral head. There is no angulation or deformity. The hip joint itself is normal. Incidentally noted is an aortoiliac stent. Impression: good alignment following open reduction internal fixation of the right femur fracture Interpreted and Authenticated by: Zack Rice 01/28/21
[2021-01-28] MEDS ORDERED: METOPROLOL TARTRATE 5 MG/5 ML VIAL IV PRN (17:49)
[2021-01-28] MEDS: 0.9 % SODIUM CHLORIDE 1,000 ML IV SCH (18:56)
[2021-01-28] MEDS: METOPROLOL TARTRATE 25 MG TABLET PO SCH (20:48)
[2021-01-28] MEDS: ENOXAPARIN 30 MG/0.3 ML SYRINGE SQ SCH (20:48)
[2021-01-28] MEDS: ceFAZolin 1 GM VIAL IV SCH (20:55)
[2021-01-28] MEDS ORDERED: MELATONIN 3 MG TABLET PO PRN (21:00)
[2021-01-29] MEDS: HYDROmorphone 0.5 MG/0.5 ML SYRINGE IV PRN (00:43)
[2021-01-29] MEDS: 0.9 % SODIUM CHLORIDE 1,000 ML IV SCH ×2 (03:16→09:07)
[2021-01-29] MEDS: 0.9 % SODIUM CHLORIDE 10 ML SYRINGE IV SCH ×3 (06:09→20:03)
[2021-01-29] MEDS: ceFAZolin 1 GM VIAL IV SCH (06:09)
[2021-01-29] MEDS: OMEPRAZOLE 20 MG CAPSULE PO SCH (07:04)
[2021-01-29 07:17] LABS: Basophils # (Auto) 0.01 K/mcL (0.00-0.30); Basophils % (Auto) 0.1 % (0.0-2.0); Eosinophils # (Auto) 0.01 K/mcL (0.00-0.70); Eosinophils % (Auto) 0.1 % (0.0-7.0); Hematocrit 31.2 % (40.1-51.0); Hemoglobin 10.2 g/dL (13.7-17.5); Lymphocytes # (Auto) 0.44 K/mcL (1.50-4.80); Lymphocytes % (Auto) 4.9 % (15.5-49.0); Mean Cell Volume 86.9 fL (80.0-100.0); Mean Corpuscular HGB Conc 32.7 g/dL (31.0-36.0); Monocytes # (Auto) 0.45 K/mcL (0.10-0.90); Neutrophils % (Auto) 89.9 % (38.0-78.0); Platelet Count 222 K/mcL (140-440); RBC 3.59 M/mcL (4.63-6.08); Red Cell Distribution Width 17.4 % (11.5-14.5)
[2021-01-29 07:38] LABS: Blood Urea Nitrogen 10 mg/dL (8-23); Calcium 8.1 mg/dL (8.6-10.4); Carbon Dioxide 25 mmol/L (22-30); Chloride 101 mmol/L (96-108); Glomerular Filtration Rate 92; Glucose 126 mg/dL (70-105)
[2021-01-29] MEDS: ASPIRIN 81 MG TAB.CHEW CHEWED SCH (08:59)
[2021-01-29] MEDS: FINASTERIDE 5 MG TABLET PO SCH (08:59)
[2021-01-29] MEDS: LISINOPRIL 20 MG TABLET PO SCH (08:59)
[2021-01-29] MEDS: METOPROLOL TARTRATE 25 MG TABLET PO SCH ×2 (08:59→23:08)
[2021-01-29] MEDS: ENOXAPARIN 30 MG/0.3 ML SYRINGE SQ SCH ×2 (08:59→20:03)
[2021-01-29] MEDS: DULoxetine 30 MG CAPSULE PO SCH (08:59)
[2021-01-29] MEDS: ATORVASTATIN 20 MG TABLET PO SCH (09:00)
[2021-01-29] MEDS: LACTATED RINGERS 1,000 ML IV SCH ×2 (09:04→23:09)
--- NOTE | 2021-01-29 09:22 | Orthopedic Progress Note ---
SUBJECTIVE Subjective Patient information: Note initiated : 01/29/21 at 9:14 am Service Date, if different from initiated Date: [] Patient: Curt Hall 75 y/o M admitted on 01/27/21 for hip pain. Chief Complaint: Postop day 1 right hip fracture fixed with IM nail Patient was alert and oriented in bed. Stated he still had some pain in his hip but is not excruciating. Overall said he was doing well with no major complaints. Patient was neurovascularly intact in his foot Dressings clean dry and intact He has been up ambulating earlier in the day. Constitutional Vitals: Vital Signs Temp Pulse Resp BP Pulse Ox 97.1 F 52 L 18 114/69 91 01/29/21 03:42 01/29/21 03:42 01/29/21 03:42 01/29/21 03:42 01/29/21 03:42 Period Temp Pulse Resp BP Sys/Littlejohn Pulse Ox Last 24 Hr 97 F-97.6 F 50-131 12-21 87-155/68-138 90-100 Intake and Output 01/28/21 01/29/21 01/29/21 21:59 05:59 13:59 Intake Total 2860 660 2000 Output Total 1650 1200 Balance 1210 -540 1999 Weight 153 lb 3 oz Intake & Output: Intake & Output 01/28/21 01/29/21 01/29/21 21:59 05:59 13:59 Intake Total 2860 660 2000 Output Total 1650 1200 Balance 1210 -540 2000 Weight 153 lb 3 oz Intake: IV 660 2000 Sodium Chloride 0.9% 1,000 ml @ 1000 75 mls/hr IV .[id number] [facility] Rx#: [id number] Lactated Ringers 1,000 ml @ 75 1000 mls/hr IV .[id number] [facility] Rx#: [id number] Potassium Chloride 40 Meq In 520 Dextrose 5% in Water 500 ml @ 130 mls/hr IV ONCE ONE Rx#: [id number] Ancef 2 gm In Dextrose 5% in 50 Water 50 ml @ 100 mls/hr IV PREOP [facility] Rx#:[id number] Oral 660 IV - Manual Only 2200 Output: Urine Catheter Amount 1600 1200 Estimated Blood Loss 50 Other: Meal snacks Percent of Meal Consumed 100% Feeding Ability Independent Urine Appearance Clear Clear Uretheral (Rolon) Clear Clear Urine Color Dark Yellow Dark Yellow Uretheral (Rolon) Bright Yellow Pale Urine Odor Strong Head Head exam: Present atraumatic and normal inspection Eye Eye exam: Present normal appearance ENT ENT exam: Present mucous membranes moist, normal exam and normal external ear exam Neck Neck exam: Present normal inspection Respiratory Respiratory exam: Present normal respiratory exam Cardiovascular Cardiovascular exam: Present normal rate and rhythm GI/Abdominal GI/Abdominal exam: Present normal bowel sounds Back Exam Back exam: Present normal inspection Neurological Exam Neurological exam: Present alert and oriented X3 Skin Skin exam: Present intact and warm OBJ DATA Labs CBC & Chem 7: 01/29/21 05:41 01/29/21 05:41 Labs: Abnormal Lab Results 01/29/21 01/29/21 01/28/21 05:41 05:41 05:51 WBC RBC 3.59 L Hgb 10.2 L Hct 31.2 L RDW 17.4 H Neut % (Auto) 89.9 H Lymph % (Auto) 4.9 L Lymph # (Auto) 0.44 L [place] # (Auto) Absolute Neutrophils 8.07 H POC Potassium Potassium 3.2 L Chloride POC BUN BUN Creatinine Glucose 126 H Calcium 8.1 L POC WB Ioniz Calcium Alkaline Phosphatase NT-Pro-B Natriuret Pep Procalcitonin 0.25 H 01/28/21 01/27/21 01/27/21 05:51 17:05 17:05 WBC RBC Hgb Hct RDW Neut % (Auto) Lymph % (Auto) Lymph # (Auto) [place] # (Auto) Absolute Neutrophils POC Potassium 3.2 L Potassium 2.9 L* 3.1 L Chloride 95 L POC BUN 4 L BUN 7 L 5 L Creatinine 0.6 L Glucose 59 L Calcium POC WB Ioniz Calcium 1.13 L Alkaline Phosphatase 142 H NT-Pro-B Natriuret Pep 1103.0 H Procalcitonin 01/27/21 17:05 WBC 15.5 H RBC Hgb 13.5 L Hct 39.0 L RDW 17.0 H Neut % (Auto) 88.9 H Lymph % (Auto) 4.8 L Lymph # (Auto) 0.75 L [place] # (Auto) 0.91 H Absolute Neutrophils 13.77 H POC Potassium Potassium Chloride POC BUN BUN Creatinine Glucose Calcium POC WB Ioniz Calcium Alkaline Phosphatase NT-Pro-B Natriuret Pep Procalcitonin Meds: Medications Acetaminophen (Acetaminophen 325 Mg Tablet) 650 mg PO Q6HP PRN; Protocol PRN Reason: Per Pain Protocol/Fever > 101 Albuterol Sulfate (Albuterol Sulfate 2.5 Mg/3 Ml Nebulizer) 2.5 mg NEB Q2HP PRN PRN Reason: Shortness Of Breath Aspirin (Aspirin 81 Mg Tab.Chew) 81 mg CHEWED DAILY [facility] Last Admin: 01/29/21 08:59 Dose: 81 mg Documented by: Atorvastatin Calcium (Atorvastatin 20 Mg Tablet) 20 mg PO QDAY [facility] Last Admin: 01/29/21 09:00 Dose: 20 mg Documented by: Duloxetine HCl (Duloxetine 30 Mg Capsule) 60 mg PO DAILY [facility] Last Admin: 01/29/21 08:59 Dose: 60 mg Documented by: Enoxaparin Sodium (Enoxaparin 30 Mg/0.3 Ml Syringe) 30 mg SQ BID [facility] Last Admin: 01/29/21 08:59 Dose: 30 mg Documented by: Finasteride (Finasteride 5 Mg Tablet) 5 mg PO DAILY [facility] Last Admin: 01/29/21 08:59 Dose: 5 mg Documented by: Hydromorphone HCl (Hydromorphone 0.5 Mg/0.5 Ml Syringe) 0.5 mg IV Q1HP PRN; Protocol PRN Reason: Per Pain Protocol Last Admin: 01/29/21 00:43 Dose: 0.5 mg Documented by: Sodium Chloride (Sodium Chloride 0.9%) 1,000 mls @ 75 mls/hr IV .[id number] [facility] Last Admin: 01/29/21 09:07 Dose: 75 mls/hr Documented by: Lactated Ringer's (Lactated Ringers) 1,000 mls @ 75 mls/hr IV .[id number] [facility] Last Admin: 01/29/21 09:04 Dose: 75 mls/hr Documented by: Ketorolac Tromethamine (Ketorolac 15 Mg/Ml Vial) 15 mg IV Q6HP PRN; Protocol PRN Reason: Per Pain Protocol Stop: 01/30/21 14:49 Labetalol HCl (Labetalol 5 Mg/Ml Ml) 10 mg IV Q10M PRN PRN Reason: Blood Pressure - High Last Admin: 01/28/21 07:35 Dose: 10 mg Documented by: Lisinopril (Lisinopril 20 Mg Tablet) 20 mg PO DAILY [facility] Last Admin: 01/29/21 08:59 Dose: 20 mg Documented by: Melatonin (Melatonin 3 Mg Tablet) 6 mg PO HSP PRN PRN Reason: Insomnia Methocarbamol (Methocarbamol 1,000 Mg/10 Ml Vial) 750 mg IV Q6HP PRN PRN Reason: Muscle Spasm Last Admin: 01/28/21 16:27 Dose: 750 mg Documented by: Metoprolol Tartrate (Metoprolol Tartrate 25 Mg Tablet) 25 mg PO BID [facility] Last Admin: 01/29/21 08:59 Dose: 25 mg Documented by: Metoprolol Tartrate (Metoprolol Tartrate 5 Mg/5 Ml Vial) 5 mg IV Q4HP PRN PRN Reason: Tachyarrhythmias Naloxone HCl (Naloxone Hcl 0.4 Mg/Ml Vial) 0.2 mg IV Q5M PRN PRN Reason: Opiate Reversal Nitroglycerin (Nitroglycerin 0.4 Mg Tab.Subl) 0.4 mg SL Q5M PRN PRN Reason: Chest Pain Omeprazole (Omeprazole 20 Mg Capsule) 20 mg PO ACB [facility] Last Admin: 01/29/21 07:04 Dose: 20 mg Documented by: Ondansetron HCl (Ondansetron 4 Mg/2 Ml Vial) 4 mg IV Q6HP PRN PRN Reason: Nausea And Vomiting Oxycodone/Acetaminophen (Oxycodone/Apap 5/325mg Tablet) 1 tab PO Q4HP PRN; Protocol PRN Reason: Per Pain Protocol Last Admin: 01/29/21 03:29 Dose: 1 tab Documented by: Polyethylene Glycol (Polyethylene Glycol 3350 17 Gm Packet) 17 gm PO DAILYP PRN PRN Reason: Constipation Senna (Sennosides 1 Tablet) 2 tab PO HS [facility] Last Admin: 01/28/21 20:48 Dose: 2 tab Documented by: Sodium Biphosphate/Sodium Phosphate (Fleets Adult Enema) 1 dose ME Q3-4DAYS PRN PRN Reason: Constipation Sodium Chloride (0.9 % Sodium Chloride 10 Ml Syringe) 10 ml IV Q8 [facility] Last Admin: 01/29/21 06:09 Dose: Not Given Documented by: Throat Lozenges (Benzocaine/Menthol 1 Lozenge) 1 lozenge PO PRN PRN PRN Reason: Sore Throat A/P Narrative A/P Narrative: Impression: Postop day 1 right hip IM nail patient doing well with no major complaints. Nail seen on x-ray in good position with fractures well reduced. Plan: Continue current management discharge planning as per hospitalist team. Prescription was provided for aspirin and pain medication Follow-up with orthopedics 2 weeks time for wound check and suture removal PA or Dr. Mckeon Ortho signs off please call Dr. Mckeon aif [place] questions or concerns Time Spent With Patient Time: Total time spent is greater than 50% in coordination of care (as documented) at patient's floor/unit and/or counseling patient:
[2021-01-29] MEDS ORDERED: POTASSIUM CHLORIDE 20 MEQ TABLET PO ONE (12:55)
--- NOTE | 2021-01-29 17:07 | Internal Med Progress Note ---
SUBJECTIVE Subjective Patient information: Note initiated : 01/29/21 at 5:07 pm Service Date, if different from initiated Date: [] Patient: Curt Hall 75 y/o M admitted on 01/27/21 for hip pain. Chief Complaint: [] Interval history: Mr. Hall is a 75 year old male with a history of hypertension, CAD, COPD, AAA s/p endograft, GERD, BPH, restless legs syndrome, spinal stenosis who is on chronic oral opioids who had a mechanical fall complicated by a right intertrochanteric proximal femur fracture. The patient hit his head when he fell. In the ED the patient underwent a minor trauma workup with noncontrast CT head, cervical spine, chest, abdomen, pelvis. In addition to the femur fracture the workup revealed a 2.5 x 3.3 cm right lower lobe peripheral spiculated lesion with central cavitation concerning for malignancy or infection. There was also a nonspecific 9/1.2 cm nodule in the left lower lung lobe. Vitals were relatively stable. CBC is remarkable for leukocytosis, chemistry panel showed mild hypokalemia. The ED provider, Diamond Encarnacion, discussed the patient with orthopedic surgery who agreed to perform surgical correction. [facility] medicine was asked to admit the patient for hip fracture with orthopedic surgery consulting. 01/28: Orthopedic surgery planning for surgical correction of fracture today, replaced potassium, no major events overnight. 01/29: Developed atrial fibrillation, started lopressor BID, the patient is walking and doing well overall, discontinued opioids, replaced potassium. Physical exam General: thin chronically ill appearing male in no distress Head: laceration on right forehead Eyes: normal appearance, no scleral icterus. Neck: full ROM Respiratory: no respiratory distress. Cardiovascular: normal rate and rhythm, S1, S2. GI/Abdominal: soft, nontender, no guarding. Extremities: clean bandage over right hip, right hip tenderness. Neurological: CN II-XII intact, intact motor, intact sensation. Psychiatric: normal mood. Skin: warm, normal color Constitutional Vitals: Vital Signs Temp Pulse Resp BP Pulse Ox 97.6 F 59 L 20 110/70 92 01/29/21 12:00 01/29/21 12:00 01/29/21 12:00 01/29/21 12:00 01/29/21 12:00 Period Temp Pulse Resp BP Sys/Littlejohn Pulse Ox Last 24 Hr 97 F-97.6 F 50-131 13-20 87-124/68-81 91-97 Intake and Output 01/29/21 01/29/21 01/29/21 05:59 13:59 21:59 Intake Total 660 2480 Output Total 1200 Balance -540 2480 Intake & Output: Intake & Output 01/29/21 01/29/21 01/29/21 05:59 13:59 21:59 Intake Total 660 2480 Output Total 1200 Balance -540 2480 Intake: IV 2000 Sodium Chloride 0.9% 1,000 ml @ 1000 75 mls/hr IV .[id number] [facility] Rx#: [id number] Lactated Ringers 1,000 ml @ 75 1000 mls/hr IV .[id number] [facility] Rx#: [id number] Oral 660 480 Output: Urine Catheter Amount 1200 Other: Meal snacks Breakfast Percent of Meal Consumed 100% 100% Feeding Ability Independent Independent Urine Appearance Clear Uretheral (Rolon) Clear Urine Color Dark Yellow Uretheral (Rolon) Pale OBJ DATA Labs CBC & Chem 7: 01/29/21 05:41 01/29/21 05:41 Labs: Abnormal Lab Results 01/29/21 01/29/21 01/28/21 05:41 05:41 05:51 WBC RBC 3.59 L Hgb 10.2 L Hct 31.2 L RDW 17.4 H Neut % (Auto) 89.9 H Lymph % (Auto) 4.9 L Lymph # (Auto) 0.44 L [place] # (Auto) Absolute Neutrophils 8.07 H POC Potassium Potassium 3.2 L Chloride POC BUN BUN Creatinine Glucose 126 H Calcium 8.1 L POC WB Ioniz Calcium Alkaline Phosphatase NT-Pro-B Natriuret Pep Procalcitonin 0.25 H 01/28/21 01/27/21 01/27/21 05:51 17:05 17:05 WBC RBC Hgb Hct RDW Neut % (Auto) Lymph % (Auto) Lymph # (Auto) [place] # (Auto) Absolute Neutrophils POC Potassium 3.2 L Potassium 2.9 L* 3.1 L Chloride 95 L POC BUN 4 L BUN 7 L 5 L Creatinine 0.6 L Glucose 59 L Calcium POC WB Ioniz Calcium 1.13 L Alkaline Phosphatase 142 H NT-Pro-B Natriuret Pep 1103.0 H Procalcitonin 01/27/21 17:05 WBC 15.5 H RBC Hgb 13.5 L Hct 39.0 L RDW 17.0 H Neut % (Auto) 88.9 H Lymph % (Auto) 4.8 L Lymph # (Auto) 0.75 L [place] # (Auto) 0.91 H Absolute Neutrophils 13.77 H POC Potassium Potassium Chloride POC BUN BUN Creatinine Glucose Calcium POC WB Ioniz Calcium Alkaline Phosphatase NT-Pro-B Natriuret Pep Procalcitonin Meds: Medications Acetaminophen (Acetaminophen 325 Mg Tablet) 650 mg PO Q6HP PRN; Protocol PRN Reason: Per Pain Protocol/Fever > 101 Albuterol Sulfate (Albuterol Sulfate 2.5 Mg/3 Ml Nebulizer) 2.5 mg NEB Q2HP PRN PRN Reason: Shortness Of Breath Aspirin (Aspirin 81 Mg Tab.Chew) 81 mg CHEWED DAILY [facility] Last Admin: 01/29/21 08:59 Dose: 81 mg Documented by: Atorvastatin Calcium (Atorvastatin 20 Mg Tablet) 20 mg PO QDAY [facility] Last Admin: 01/29/21 09:00 Dose: 20 mg Documented by: Duloxetine HCl (Duloxetine 30 Mg Capsule) 60 mg PO DAILY [facility] Last Admin: 01/29/21 08:59 Dose: 60 mg Documented by: Enoxaparin Sodium (Enoxaparin 30 Mg/0.3 Ml Syringe) 30 mg SQ BID [facility] Last Admin: 01/29/21 08:59 Dose: 30 mg Documented by: Finasteride (Finasteride 5 Mg Tablet) 5 mg PO DAILY [facility] Last Admin: 01/29/21 08:59 Dose: 5 mg Documented by: Hydromorphone HCl (Hydromorphone 0.5 Mg/0.5 Ml Syringe) 0.5 mg IV Q1HP PRN; Protocol PRN Reason: Per Pain Protocol Last Admin: 01/29/21 00:43 Dose: 0.5 mg Documented by: Lactated Ringer's (Lactated Ringers) 1,000 mls @ 75 mls/hr IV .[id number] [facility] Last Admin: 01/29/21 09:04 Dose: 75 mls/hr Documented by: Ketorolac Tromethamine (Ketorolac 15 Mg/Ml Vial) 15 mg IV Q6HP PRN; Protocol PRN Reason: Per Pain Protocol Stop: 01/30/21 14:49 Labetalol HCl (Labetalol 5 Mg/Ml Ml) 10 mg IV Q10M PRN PRN Reason: Blood Pressure - High Last Admin: 01/28/21 07:35 Dose: 10 mg Documented by: Lisinopril (Lisinopril 20 Mg Tablet) 20 mg PO DAILY [facility] Last Admin: 01/29/21 08:59 Dose: 20 mg Documented by: Melatonin (Melatonin 3 Mg Tablet) 6 mg PO HSP PRN PRN Reason: Insomnia Methocarbamol (Methocarbamol 1,000 Mg/10 Ml Vial) 750 mg IV Q6HP PRN PRN Reason: Muscle Spasm Last Admin: 01/28/21 16:27 Dose: 750 mg Documented by: Metoprolol Tartrate (Metoprolol Tartrate 25 Mg Tablet) 25 mg PO BID [facility] Last Admin: 01/29/21 08:59 Dose: 25 mg Documented by: Metoprolol Tartrate (Metoprolol Tartrate 5 Mg/5 Ml Vial) 5 mg IV Q4HP PRN PRN Reason: Tachyarrhythmias Naloxone HCl (Naloxone Hcl 0.4 Mg/Ml Vial) 0.2 mg IV Q5M PRN PRN Reason: Opiate Reversal Nitroglycerin (Nitroglycerin 0.4 Mg Tab.Subl) 0.4 mg SL Q5M PRN PRN Reason: Chest Pain Omeprazole (Omeprazole 20 Mg Capsule) 20 mg PO ACB [facility] Last Admin: 01/29/21 07:04 Dose: 20 mg Documented by: Ondansetron HCl (Ondansetron 4 Mg/2 Ml Vial) 4 mg IV Q6HP PRN PRN Reason: Nausea And Vomiting Oxycodone/Acetaminophen (Oxycodone/Apap 5/325mg Tablet) 1 tab PO Q4HP PRN; Protocol PRN Reason: Per Pain Protocol Last Admin: 01/29/21 03:29 Dose: 1 tab Documented by: Polyethylene Glycol (Polyethylene Glycol 3350 17 Gm Packet) 17 gm PO DAILYP PRN PRN Reason: Constipation Senna (Sennosides 1 Tablet) 2 tab PO HS [facility] Last Admin: 01/28/21 20:48 Dose: 2 tab Documented by: Sodium Biphosphate/Sodium Phosphate (Fleets Adult Enema) 1 dose [place] Q3-4DAYS PRN PRN Reason: Constipation Sodium Chloride (0.9 % Sodium Chloride 10 Ml Syringe) 10 ml IV Q8 [facility] Last Admin: 01/29/21 14:04 Dose: Not Given Documented by: Throat Lozenges (Benzocaine/Menthol 1 Lozenge) 1 lozenge PO PRN PRN PRN Reason: Sore Throat A/P Narrative A/P Narrative: Assessment: 75 year old male with a history of hypertension, CAD, COPD, AAA s/p endograft, GERD, BPH, restless legs syndrome, spinal stenosis on chronic oral opioids had a mechanical fall that was complicated by a right intertrochanteric proximal femur fracture. Workup in the ED included a noncontrast CT chest that showed a 2.5 x 3.3 cm right lower lobe peripheral spiculated lesion with central cavitation concerning for malignancy or infection. #Right intertrochanteric femur fracture #Right lower lobe lesion concerning for malignancy vs infection #Hypoxia, possibly chronic #Leukocytosis likely stress induced #COPD #Bronchiectasis #Coronary artery disease, stable #Essential hypertension #AAA s/p endograft #Chronic pain on opioid (Percocet) #GERD #BPH #Unintentional weight loss #Tobacco use disorder Plan -Continue essential home meds. -Oxygen supplementation as needed, goal sats 88-92%. -Albuterol nebs prn. -Potassium supplement. -Analgesics prn. -Nicotine replacement. -Regular diet. -PT consult -Discuss afib anticoagulation risks/benefits -DVT ppx: lovenox -Code status: DNR -Disposition: TBD, pulmonology follow up for lung lesion concerning for malignancy. Time Spent With Patient Time: Total time spent is greater than 50% in coordination of care (as documented) at patient's floor/unit and/or counseling patient:
[2021-01-29] MEDS: KETOROLAC 15 MG/ML VIAL IV PRN (20:03)
[2021-01-29] MEDS: SENNOSIDES 1 TABLET PO SCH (20:03)
[2021-01-30] MEDS: KETOROLAC 15 MG/ML VIAL IV PRN ×2 (03:29→09:49)
[2021-01-30] MEDS: 0.9 % SODIUM CHLORIDE 10 ML SYRINGE IV SCH ×3 (06:05→21:38)
[2021-01-30] MEDS: OMEPRAZOLE 20 MG CAPSULE PO SCH (07:15)
[2021-01-30] MEDS: ACETAMINOPHEN 325 MG TABLET PO PRN ×2 (07:18→17:45)
[2021-01-30] MEDS: LACTATED RINGERS 1,000 ML IV SCH ×2 (07:19→19:52)
[2021-01-30 08:33] LABS: Basophils # (Auto) 0.01 K/mcL (0.00-0.30); Basophils % (Auto) 0.1 % (0.0-2.0); Eosinophils # (Auto) 0.09 K/mcL (0.00-0.70); Eosinophils % (Auto) 1.1 % (0.0-7.0); Hematocrit 30.4 % (40.1-51.0); Hemoglobin 10.1 g/dL (13.7-17.5); Lymphocytes # (Auto) 0.55 K/mcL (1.50-4.80); Lymphocytes % (Auto) 6.6 % (15.5-49.0); Mean Cell Volume 86.4 fL (80.0-100.0); Mean Corpuscular HGB Conc 33.2 g/dL (31.0-36.0); Mean Platelet Volume 9.4 fL (7.4-10.4); Monocytes # (Auto) 0.43 K/mcL (0.10-0.90); Monocytes % (Auto) 5.2 % (1.0-12.0); Platelet Count 250 K/mcL (140-440); RBC 3.52 M/mcL (4.63-6.08); Red Cell Distribution Width 17.8 % (11.5-14.5); WBC 8.3 K/mcL (4.5-11.0)
[2021-01-30 09:42] LABS: Blood Urea Nitrogen 13 mg/dL (8-23); Calcium 8.1 mg/dL (8.6-10.4); Carbon Dioxide 24 mmol/L (22-30); Chloride 103 mmol/L (96-108); Glomerular Filtration Rate 92; Glucose 104 mg/dL (70-105)
[2021-01-30] MEDS: ASPIRIN 81 MG TAB.CHEW CHEWED SCH (09:48)
[2021-01-30] MEDS: METOPROLOL TARTRATE 25 MG TABLET PO SCH ×2 (09:48→21:36)
[2021-01-30] MEDS: LISINOPRIL 20 MG TABLET PO SCH (09:48)
[2021-01-30] MEDS: ATORVASTATIN 20 MG TABLET PO SCH (09:48)
[2021-01-30] MEDS: DULoxetine 30 MG CAPSULE PO SCH (09:48)
[2021-01-30] MEDS: FINASTERIDE 5 MG TABLET PO SCH (09:48)
[2021-01-30] MEDS: ENOXAPARIN 30 MG/0.3 ML SYRINGE SQ SCH (09:49)
--- NOTE | 2021-01-30 10:24 | EKG ---
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 Electronically Signed On 01-30-2021 10:23:56 PDT by Curt Guajardo /[email or web address]/[id number]/[id number]
--- NOTE | 2021-01-30 10:26 | EKG ---
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
--- NOTE | 2021-01-30 10:30 | EKG ---
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 Consider atrial flutter LEFT ANTERIOR FASCICULAR BLOCK Anterior Q waves. Compared to prior Tachyarrhythmia is new, Anteroseptal Q waves were not previously noted. Electronically Signed On 01-30-2021 10:30:11 PDT by Curt Guajardo /store/[email or web address]/[id number]/ecg/[id number]
--- NOTE | 2021-01-30 10:34 | EKG ---
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 Electronically Signed On 01-30-2021 10:33:52 PDT by Curt Guajardo /store/M0/[id number]/ecg/[id number]
--- NOTE | 2021-01-30 15:32 | Internal Med Progress Note ---
SUBJECTIVE Subjective Patient information: Note initiated : 01/30/21 at 3:29 pm Service Date, if different from initiated Date: [] Patient: Curt Hall 75 y/o M admitted on 01/27/21 for hip pain. Chief Complaint: [] Interval history: Mr. Hall is a 75 year old male with a history of hypertension, CAD, COPD, AAA s/p endograft, GERD, BPH, restless legs syndrome, spinal stenosis who is on chronic oral opioids who had a mechanical fall complicated by a right intertrochanteric proximal femur fracture. The patient hit his head when he fell. In the ED the patient underwent a minor trauma workup with noncontrast CT head, cervical spine, chest, abdomen, pelvis. In addition to the femur fracture the workup revealed a 2.5 x 3.3 cm right lower lobe peripheral spiculated lesion with central cavitation concerning for malignancy or infection. There was also a nonspecific 9/1.2 cm nodule in the left lower lung lobe. Vitals were relatively stable. CBC is remarkable for leukocytosis, chemistry panel showed mild hypokalemia. The ED provider, Diamond Encarnacion, discussed the patient with orthopedic surgery who agreed to perform surgical correction. [facility] medicine was asked to admit the patient for hip fracture with orthopedic surgery consulting. 01/28: Orthopedic surgery planning for surgical correction of fracture today, replaced potassium, no major events overnight. 01/29: Developed atrial fibrillation, started lopressor BID, the patient is walking and doing well overall, discontinued opioids, replaced potassium. 01/30: Discussed anticoagulation benefits vs risks, the patient decided to start anticoagulation. Eliquis started for atrial fibrillation. CHADS VASC score 4. The patient is ok with rehab at a SNF. Physical exam General: thin chronically ill appearing male in no distress Head: laceration on right forehead Eyes: normal appearance, no scleral icterus. Neck: full ROM Respiratory: no respiratory distress. Cardiovascular: normal rate and rhythm, S1, S2. GI/Abdominal: soft, nontender, no guarding. Extremities: clean bandage over right hip, right hip tenderness. Neurological: CN II-XII intact, intact motor, intact sensation. Psychiatric: normal mood. Skin: warm, normal color Constitutional Vitals: Vital Signs Temp Pulse Resp BP Pulse Ox 97.7 F 88 18 126/78 97 01/30/21 11:30 01/30/21 11:30 01/30/21 11:30 01/30/21 11:30 01/30/21 11:30 Period Temp Pulse Resp BP Sys/Littlejohn Pulse Ox Last 24 Hr 97.5 F-98.2 F 52-88 18-20 126-143/78-85 94-97 Intake and Output 01/30/21 01/30/21 01/30/21 05:59 13:59 21:59 Intake Total 1000 360 Output Total 780 200 Balance 220 160 Intake & Output: Intake & Output 01/30/21 01/30/21 01/30/21 05:59 13:59 21:59 Intake Total 1000 360 Output Total 780 200 Balance 220 160 Intake: IV 1000 Lactated Ringers 1,000 ml @ 75 1000 mls/hr IV .[id number] [facility] Rx#: [id number] Oral 360 Output: Void Amount 780 200 Other: Meal Breakfast Percent of Meal Consumed 100% Feeding Ability Independent Urine Appearance Clear Clear Urine Color Bright Yellow Dark Yellow Urine Odor Normal Stool Size Moderate Stool Color Brown Stool Consistency Normal for Patient # Voids 1 OBJ DATA Labs CBC & Chem 7: 01/30/21 06:14 01/30/21 06:14 Labs: Abnormal Lab Results 01/30/21 01/30/21 01/29/21 06:14 06:14 05:41 WBC RBC 3.52 L 3.59 L Hgb 10.1 L 10.2 L Hct 30.4 L 31.2 L RDW 17.8 H 17.4 H Neut % (Auto) 87.0 H 89.9 H Lymph % (Auto) 6.6 L 4.9 L Lymph # (Auto) 0.55 L 0.44 L [place] # (Auto) Absolute Neutrophils 8.07 H POC Potassium Potassium Chloride POC BUN BUN Creatinine Glucose Calcium 8.1 L POC WB Ioniz Calcium Alkaline Phosphatase NT-Pro-B Natriuret Pep Procalcitonin 01/29/21 01/28/21 01/28/21 05:41 05:51 05:51 WBC RBC Hgb Hct RDW Neut % (Auto) Lymph % (Auto) Lymph # (Auto) [place] # (Auto) Absolute Neutrophils POC Potassium Potassium 3.2 L 2.9 L* Chloride POC BUN BUN 7 L Creatinine 0.6 L Glucose 126 H 59 L Calcium 8.1 L POC WB Ioniz Calcium Alkaline Phosphatase NT-Pro-B Natriuret Pep Procalcitonin 0.25 H 01/27/21 01/27/21 01/27/21 17:05 17:05 17:05 WBC 15.5 H RBC Hgb 13.5 L Hct 39.0 L RDW 17.0 H Neut % (Auto) 88.9 H Lymph % (Auto) 4.8 L Lymph # (Auto) 0.75 L [place] # (Auto) 0.91 H Absolute Neutrophils 13.77 H POC Potassium 3.2 L Potassium 3.1 L Chloride 95 L POC BUN 4 L BUN 5 L Creatinine Glucose Calcium POC WB Ioniz Calcium 1.13 L Alkaline Phosphatase 142 H NT-Pro-B Natriuret Pep 1103.0 H Procalcitonin Meds: Medications Acetaminophen (Acetaminophen 325 Mg Tablet) 650 mg PO Q6HP PRN; Protocol PRN Reason: Per Pain Protocol/Fever > 101 Last Admin: 01/30/21 07:18 Dose: 650 mg Documented by: Albuterol Sulfate (Albuterol Sulfate 2.5 Mg/3 Ml Nebulizer) 2.5 mg NEB Q2HP PRN PRN Reason: Shortness Of Breath Apixaban (Apixaban 5 Mg Tablet) 5 mg PO BID [facility] Atorvastatin Calcium (Atorvastatin 20 Mg Tablet) 20 mg PO QDAY [facility] Last Admin: 01/30/21 09:48 Dose: 20 mg Documented by: Duloxetine HCl (Duloxetine 30 Mg Capsule) 60 mg PO DAILY [facility] Last Admin: 01/30/21 09:48 Dose: 60 mg Documented by: Finasteride (Finasteride 5 Mg Tablet) 5 mg PO DAILY [facility] Last Admin: 01/30/21 09:48 Dose: 5 mg Documented by: Lactated Ringer's (Lactated Ringers) 1,000 mls @ 75 mls/hr IV .[id number] [facility] Last Admin: 01/30/21 07:19 Dose: Not Given Documented by: Labetalol HCl (Labetalol 5 Mg/Ml Ml) 10 mg IV Q10M PRN PRN Reason: Blood Pressure - High Last Admin: 01/28/21 07:35 Dose: 10 mg Documented by: Lisinopril (Lisinopril 20 Mg Tablet) 20 mg PO DAILY [facility] Last Admin: 01/30/21 09:48 Dose: 20 mg Documented by: Melatonin (Melatonin 3 Mg Tablet) 6 mg PO HSP PRN PRN Reason: Insomnia Methocarbamol (Methocarbamol 1,000 Mg/10 Ml Vial) 750 mg IV Q6HP PRN PRN Reason: Muscle Spasm Last Admin: 01/28/21 16:27 Dose: 750 mg Documented by: Metoprolol Tartrate (Metoprolol Tartrate 5 Mg/5 Ml Vial) 5 mg IV Q4HP PRN PRN Reason: Tachyarrhythmias Metoprolol Tartrate (Metoprolol Tartrate 25 Mg Tablet) 12.5 mg PO BID [facility] Last Admin: 01/30/21 09:48 Dose: 12.5 mg Documented by: Naloxone HCl (Naloxone Hcl 0.4 Mg/Ml Vial) 0.2 mg IV Q5M PRN PRN Reason: Opiate Reversal Nitroglycerin (Nitroglycerin 0.4 Mg Tab.Subl) 0.4 mg SL Q5M PRN PRN Reason: Chest Pain Omeprazole (Omeprazole 20 Mg Capsule) 20 mg PO ACB [facility] Last Admin: 01/30/21 07:15 Dose: 20 mg Documented by: Ondansetron HCl (Ondansetron 4 Mg/2 Ml Vial) 4 mg IV Q6HP PRN PRN Reason: Nausea And Vomiting Polyethylene Glycol (Polyethylene Glycol 3350 17 Gm Packet) 17 gm PO DAILYP PRN PRN Reason: Constipation Senna (Sennosides 1 Tablet) 2 tab PO HS [facility] Last Admin: 01/29/21 20:03 Dose: 2 tab Documented by: Sodium Biphosphate/Sodium Phosphate (Fleets Adult Enema) [address] Q3-4DAYS PRN PRN Reason: Constipation Sodium Chloride (0.9 % Sodium Chloride 10 Ml Syringe) 10 ml IV Q8 [facility] Last Admin: 01/30/21 06:05 Dose: Not Given Documented by: Throat Lozenges (Benzocaine/Menthol 1 Lozenge) 1 lozenge PO PRN PRN PRN Reason: Sore Throat A/P Narrative A/P Narrative: Assessment: 75 year old male with a history of hypertension, CAD, COPD, AAA s/p endograft, GERD, BPH, restless legs syndrome, spinal stenosis on chronic oral opioids had a mechanical fall that was complicated by a right intertrochanteric proximal femur fracture. Workup in the ED included a noncontrast CT chest that showed a 2.5 x 3.3 cm right lower lobe peripheral spiculated lesion with central cavitation concerning for malignancy or infection. #Right intertrochanteric femur fracture #Right lower lobe lesion concerning for malignancy vs infection #Atrial fibrillation-CHADS VASC score 4 #Resolved hypoxia #COPD #Bronchiectasis #Coronary artery disease, stable #Essential hypertension #AAA s/p endograft #Chronic pain on opioid (Percocet) #GERD #BPH #Unintentional weight loss #Tobacco use disorder Plan -Eliquis 5 mg BID. -Continue essential home meds. -Albuterol nebs prn. -Analgesics prn. -Nicotine replacement. -Regular diet. -PT consult -DVT ppx: Eliquis -Code status: DNR -Disposition: SNF for rehab, pulmonology follow up for lung lesion concerning for malignancy. Time Spent With Patient Time: Total time spent is greater than 50% in coordination of care (as documented) at patient's floor/unit and/or counseling patient:
[2021-01-30] MEDS: SENNOSIDES 1 TABLET PO SCH (21:36)
[2021-01-30] MEDS: oxyCODONE HCL 5 MG TABLET PO PRN (21:37)
[2021-01-30] MEDS: APIXABAN 5 MG TABLET PO SCH (21:38)
[2021-01-31] MEDS: METHOCARBAMOL 1,000 MG/10 ML VIAL IV PRN ×2 (00:51→18:58)
[2021-01-31] MEDS: oxyCODONE HCL 5 MG TABLET PO PRN ×3 (03:16→18:57)
[2021-01-31] MEDS: 0.9 % SODIUM CHLORIDE 10 ML SYRINGE IV SCH ×3 (04:07→20:48)
[2021-01-31] MEDS: METOPROLOL TARTRATE 25 MG TABLET PO SCH ×2 (08:54→20:46)
[2021-01-31] MEDS: OMEPRAZOLE 20 MG CAPSULE PO SCH (08:54)
[2021-01-31] MEDS: LISINOPRIL 20 MG TABLET PO SCH (08:54)
[2021-01-31] MEDS: APIXABAN 5 MG TABLET PO SCH ×2 (08:54→20:48)
[2021-01-31] MEDS: ATORVASTATIN 20 MG TABLET PO SCH (08:54)
[2021-01-31] MEDS: ACETAMINOPHEN 325 MG TABLET PO PRN ×2 (08:55→20:45)
[2021-01-31] MEDS: DULoxetine 30 MG CAPSULE PO SCH (08:56)
[2021-01-31] MEDS: FINASTERIDE 5 MG TABLET PO SCH (08:56)
[2021-01-31] MEDS: LACTATED RINGERS 1,000 ML IV SCH ×2 (09:25→22:47)
--- NOTE | 2021-01-31 14:02 | Internal Med Progress Note ---
SUBJECTIVE Subjective Patient information: Note initiated : 01/31/21 at 2:01 pm Service Date, if different from initiated Date: [] Patient: Curt Hall 75 y/o M admitted on 01/27/21 for hip pain. Chief Complaint: [] Interval history: Mr. Hall is a 75 year old male with a history of hypertension, CAD, COPD, AAA s/p endograft, GERD, BPH, restless legs syndrome, spinal stenosis who is on chronic oral opioids who had a mechanical fall complicated by a right intertrochanteric proximal femur fracture. The patient hit his head when he fell. In the ED the patient underwent a minor trauma workup with noncontrast CT head, cervical spine, chest, abdomen, pelvis. In addition to the femur fracture the workup revealed a 2.5 x 3.3 cm right lower lobe peripheral spiculated lesion with central cavitation concerning for malignancy or infection. There was also a nonspecific 9/1.2 cm nodule in the left lower lung lobe. Vitals were relatively stable. CBC is remarkable for leukocytosis, chemistry panel showed mild hypokalemia. The ED provider, Diamond Encarnacion, discussed the patient with orthopedic surgery who agreed to perform surgical correction. [facility] medicine was asked to admit the patient for hip fracture with orthopedic surgery consulting. 01/28: Orthopedic surgery planning for surgical correction of fracture today, replaced potassium, no major events overnight. 01/29: Developed atrial fibrillation, started lopressor BID, the patient is walking and doing well overall, discontinued opioids, replaced potassium. 01/30: Discussed anticoagulation benefits vs risks, the patient decided to start anticoagulation. Eliquis started for atrial fibrillation. CHADS VASC score 4. The patient is ok with rehab at a SNF. 01/31: No major events overnight, anticipate discharge Monday or Monday to SNF pending placement. Physical exam General: thin chronically ill appearing male in no distress Head: laceration on right forehead Eyes: normal appearance, no scleral icterus. Neck: full ROM Respiratory: no respiratory distress. Cardiovascular: normal rate and rhythm, S1, S2. GI/Abdominal: soft, nontender, no guarding. Extremities: clean bandage over right hip, right hip tenderness. Neurological: CN II-XII intact, intact motor, intact sensation. Psychiatric: normal mood. Skin: warm, normal color Constitutional Vitals: Vital Signs Temp Pulse Resp BP Pulse Ox 97.5 F 64 18 129/76 95 01/31/21 11:35 01/31/21 11:35 01/31/21 11:35 01/31/21 11:35 01/31/21 11:35 Period Temp Pulse Resp BP Sys/Littlejohn Pulse Ox Last 24 Hr 97 F-98 F 61-84 16-20 129-158/75-87 95-97 Intake and Output 01/31/21 01/31/21 01/31/21 05:59 13:59 21:59 Intake Total 400 Output Total 750 400 Balance -350 -400 Intake & Output: Intake & Output 01/31/21 01/31/21 01/31/21 05:59 13:59 21:59 Intake Total 400 Output Total 750 400 Balance -350 -400 Intake: Oral 400 Output: Void Amount 750 400 Other: Meal Lunch Percent of Meal Consumed 75% Feeding Ability Independent Urine Appearance Clear Urine Color Pale Bright Yellow OBJ DATA Labs CBC & Chem 7: 01/30/21 06:14 01/30/21 06:14 Labs: Abnormal Lab Results 01/30/21 01/30/21 01/29/21 06:14 06:14 05:41 RBC 3.52 L 3.59 L Hgb 10.1 L 10.2 L Hct 30.4 L 31.2 L RDW 17.8 H 17.4 H Neut % (Auto) 87.0 H 89.9 H Lymph % (Auto) 6.6 L 4.9 L Lymph # (Auto) 0.55 L 0.44 L Absolute Neutrophils 8.07 H Potassium Glucose Calcium 8.1 L 01/29/21 05:41 RBC Hgb Hct RDW Neut % (Auto) Lymph % (Auto) Lymph # (Auto) Absolute Neutrophils Potassium 3.2 L Glucose 126 H Calcium 8.1 L Meds: Medications Acetaminophen (Acetaminophen 325 Mg Tablet) 650 mg PO Q6HP PRN; Protocol PRN Reason: Per Pain Protocol/Fever > 101 Last Admin: 01/31/21 08:55 Dose: 650 mg Documented by: Albuterol Sulfate (Albuterol Sulfate 2.5 Mg/3 Ml Nebulizer) 2.5 mg NEB Q2HP PRN PRN Reason: Shortness Of Breath Apixaban (Apixaban 5 Mg Tablet) 5 mg PO BID NAREN Last Admin: 01/31/21 08:54 Dose: 5 mg Documented by: Atorvastatin Calcium (Atorvastatin 20 Mg Tablet) 20 mg PO QDAY [facility] Last Admin: 01/31/21 08:54 Dose: 20 mg Documented by: Duloxetine HCl (Duloxetine 30 Mg Capsule) 60 mg PO DAILY [facility] Last Admin: 01/31/21 08:56 Dose: 60 mg Documented by: Finasteride (Finasteride 5 Mg Tablet) 5 mg PO DAILY [facility] Last Admin: 01/31/21 08:56 Dose: 5 mg Documented by: Lactated Ringer's (Lactated Ringers) 1,000 mls @ 75 mls/hr IV .[id number] [facility] Last Admin: 01/31/21 09:25 Dose: Not Given Documented by: Labetalol HCl (Labetalol 5 Mg/Ml Ml) 10 mg IV Q10M PRN PRN Reason: Blood Pressure - High Last Admin: 01/28/21 07:35 Dose: 10 mg Documented by: Lisinopril (Lisinopril 20 Mg Tablet) 20 mg PO DAILY [facility] Last Admin: 01/31/21 08:54 Dose: 20 mg Documented by: Melatonin (Melatonin 3 Mg Tablet) 6 mg PO HSP PRN PRN Reason: Insomnia Methocarbamol (Methocarbamol 1,000 Mg/10 Ml Vial) 750 mg IV Q6HP PRN PRN Reason: Muscle Spasm Last Admin: 01/31/21 00:51 Dose: 750 mg Documented by: Metoprolol Tartrate (Metoprolol Tartrate 5 Mg/5 Ml Vial) 5 mg IV Q4HP PRN PRN Reason: Tachyarrhythmias Metoprolol Tartrate (Metoprolol Tartrate 25 Mg Tablet) 12.5 mg PO BID [facility] Last Admin: 01/31/21 08:54 Dose: 12.5 mg Documented by: Naloxone HCl (Naloxone Hcl 0.4 Mg/Ml Vial) 0.2 mg IV Q5M PRN PRN Reason: Opiate Reversal Nitroglycerin (Nitroglycerin 0.4 Mg Tab.Subl) 0.4 mg SL Q5M PRN PRN Reason: Chest Pain Omeprazole (Omeprazole 20 Mg Capsule) 20 mg PO ACB [facility] Last Admin: 01/31/21 08:54 Dose: 20 mg Documented by: Ondansetron HCl (Ondansetron 4 Mg/2 Ml Vial) 4 mg IV Q6HP PRN PRN Reason: Nausea And Vomiting Oxycodone HCl (Oxycodone Hcl 5 Mg Tablet) 5 mg PO Q6HP PRN; Protocol PRN Reason: Per Pain Protocol Last Admin: 01/31/21 13:32 Dose: 5 mg Documented by: Polyethylene Glycol (Polyethylene Glycol 3350 17 Gm Packet) 17 gm PO DAILYP PRN PRN Reason: Constipation Senna (Sennosides 1 Tablet) 2 tab PO HS NAREN Last Admin: 01/30/21 21:36 Dose: 2 tab Documented by: Sodium Biphosphate/Sodium Phosphate (Fleets Adult Enema) 1 dose MO Q3-4DAYS PRN PRN Reason: Constipation Sodium Chloride (0.9 % Sodium Chloride 10 Ml Syringe) 10 ml IV Q8 NAREN Last Admin: 01/31/21 13:32 Dose: 10 ml Documented by: Throat Lozenges (Benzocaine/Menthol 1 Lozenge) 1 lozenge PO PRN PRN PRN Reason: Sore Throat A/P Narrative A/P Narrative: Assessment: 75 year old male with a history of hypertension, CAD, COPD, AAA s/p endograft, GERD, BPH, restless legs syndrome, spinal stenosis on chronic oral opioids had a mechanical fall that was complicated by a right intertrochanteric proximal femur fracture. Workup in the ED included a noncontrast CT chest that showed a 2.5 x 3.3 cm right lower lobe peripheral spiculated lesion with central cavitation concerning for malignancy or infection . #Right intertrochanteric femur fracture #Right lower lobe lesion concerning for malignancy vs infection #Atrial fibrillation-CHADS VASC score 4 #Resolved hypoxia #COPD #Bronchiectasis #Coronary artery disease, stable #Essential hypertension #AAA s/p endograft #Chronic pain on opioid (Percocet) #GERD #BPH #Unintentional weight loss #Tobacco use disorder Plan -Eliquis 5 mg BID. -Continue essential home meds. -Albuterol nebs prn. -Analgesics prn. -Nicotine replacement. -Regular diet. -PT consult -DVT ppx: Eliquis -Code status: DNR -Disposition: SNF for rehab, pulmonology follow up for lung lesion concerning for malignancy. Time Spent With Patient Time: Total time spent is greater than 50% in coordination of care (as documented) at patient's floor/unit and/or counseling patient:
[2021-01-31] MEDS: SENNOSIDES 1 TABLET PO SCH (20:46)
[2021-02-01] MEDS: METHOCARBAMOL 1,000 MG/10 ML VIAL IV PRN (01:01)
[2021-02-01] MEDS: oxyCODONE HCL 5 MG TABLET PO PRN ×2 (01:02→08:04)
[2021-02-01] MEDS: 0.9 % SODIUM CHLORIDE 10 ML SYRINGE IV SCH ×2 (04:09→14:11)
[2021-02-01] MEDS: LISINOPRIL 20 MG TABLET PO SCH (08:04)
[2021-02-01] MEDS: OMEPRAZOLE 20 MG CAPSULE PO SCH (08:04)
[2021-02-01] MEDS: DULoxetine 30 MG CAPSULE PO SCH (08:04)
[2021-02-01] MEDS: APIXABAN 5 MG TABLET PO SCH (08:04)
[2021-02-01] MEDS: ATORVASTATIN 20 MG TABLET PO SCH (08:04)
[2021-02-01] MEDS: FINASTERIDE 5 MG TABLET PO SCH (08:04)
[2021-02-01] MEDS: METOPROLOL TARTRATE 25 MG TABLET PO SCH (08:05)
--- NOTE | 2021-02-01 12:21 | XRay Report ---
CLINICAL INFORMATION: Fall COMPARISON: Films 01/28/2021. FINDINGS: Prior acute right intratrochanteric fracture transfixed by gamma nail remains anatomically aligned. No evidence of refracture or other acute fracture. The SI and hip joints are normal in width and alignment without arthritic change. Soft tissues normal. IMPRESSION: Right intertrochanteric fracture remains anatomically aligned. No new fracture identified Interpreted and Authenticated by: Gaurav Hair 02/01/21
--- NOTE | 2021-02-01 13:00 | Discharge Summary ---
Discharge Provider Provider Patient information: Note initiated : 02/01/21 at 12:57 pm Service Date, if different from initiated Date: [] Patient: Curt Hall 75 y/o M admitted on 01/27/21 for hip pain. Chief Complaint: [] Date of admission: 01/27/21 21:40 Discharge date: 02/01/21 Primary care physician: Becki Lopez Consults: 01/27/21 Consult to Physician [CONS] Stat Comment: Consulting Provider: Marcel Pearce Reason For Exam: Physician to Consult Consult to Physician [CONS] Stat Comment: Consulting Provider: Hung Mckeon Reason For Exam: Physician to Consult 01/27/21 21:46 Consult to Physician [CONS] Stat Comment: Consulting Provider: Hung Mckeon Reason For Exam: Physician to Consult Discharge Meds Discharge Medications Home Medications atorvastatin 20 mg PO QDAY 05/04/20 [History Confirmed 01/28/21 Last Taken Unknown] finasteride 5 mg PO DAILY 05/04/20 [History Confirmed 01/28/21 Last Taken Unknown] fluoxetine 20 mg PO DAILY 05/04/20 [History Confirmed 01/28/21 Last Taken Unknow n] lisinopril 10 mg PO QDAY 05/04/20 [History Confirmed 01/28/21 Last Taken Unknown] loperamide [Imodium A-D] 2 mg PO QID PRN 05/04/20 [History Confirmed 01/28/21 Last Taken Unknown] melatonin 5 mg PO HS PRN 05/04/20 [History Confirmed 01/28/21 Last Taken Unknown] nitroglycerin 0.4 mg SUBLINGUAL Q5M PRN 05/04/20 [History Confirmed 01/28/21 Last Taken Unknown] omeprazole 20 mg PO DAILY 05/04/20 [History Confirmed 01/28/21 Last Taken Unknown] oxycodone-acetaminophen [Percocet] 1 tab PO Q6H PRN 05/04/20 [History Confirmed 01/28/21 Last Taken Unknown] alfuzosin 10 mg tablet,extended release 24 hr 10 mg PO QDAY 07/30/20 [History Confirmed 09/03/20 Last Taken Unknown] duloxetine 60 mg capsule,delayed release See Rx Instructions PO .COMPLEX 07/30/20 [History Confirmed 01/28/21 Last Taken Unknown] multivitamin 1 tab PO QDAY 07/30/20 [History Confirmed 09/03/20 Last Taken Unknown] pramipexole 0.125 mg tablet See Rx Instructions PO .COMPLEX 07/30/20 [History Confirmed 01/28/21 Last Taken Unknown] lisinopril 20 mg tablet 10 mg PO tab 09/03/20 [History Confirmed 09/03/20 Last Taken Unknown] hydrocodone-acetaminophen 1 tab PO Q6H PRN #60 tab 01/28/21 [Rx Last Taken Unknown] acetaminophen [Tylenol] 650 mg PO Q6HP PRN #30 tab 02/01/21 [Rx Last Taken Unknown] apixaban [Eliquis] 5 mg PO BID #60 tab 02/01/21 [Rx Last Taken Unknown] COURSE Hospital Course Hospital course: Mr. Hall is a 75 year old male with a history of hypertension, CAD, COPD, AAA s/p endograft, GERD, BPH, restless legs syndrome, spinal stenosis who is on chronic oral opioids who had a mechanical fall complicated by a right intertrochanteric proximal femur fracture. The patient hit his head when he fell. In the ED the patient underwent a minor trauma workup with noncontrast CT head, cervical spine, chest, abdomen, pelvis. In addition to the femur fracture the workup revealed a 2.5 x 3.3 cm right lower lobe peripheral spiculated lesion with central cavitation concerning for malignancy or infection. There was also a nonspecific 9/1.2 cm nodule in the left lower lung lobe. Vitals were relatively stable. CBC is remarkable for leukocytosis, chemistry panel showed mild hypokalemia. The ED provider, Diamond Encarnacion, discussed the patient with orthopedic surgery who agreed to perform surgical correction. Hospital medicine was asked to admit the patient for hip fracture with orthopedic surgery consulting. 01/28: Orthopedic surgery planning for surgical correction of fracture today, replaced potassium, no major events overnight. 01/29: Developed atrial fibrillation, started lopressor BID, the patient is walking and doing well overall, discontinued opioids, replaced potassium. 01/30: Discussed anticoagulation benefits vs risks, the patient decided to start anticoagulation. Eliquis started for atrial fibrillation. CHADS VASC score 4. The patient is ok with rehab at a SNF. 01/31: No major events overnight, anticipate discharge Monday or Monday to SNF pending placement. 02/01: Had a fall last night, does not complain of more paint his morning, xray of the right hip did not show any new fracture, anatomic alignment maintained. Discharged to SNF for rehab. Referral for pulmonology follow up for right lower lob mass concerning for malignancy. Physical exam General: thin chronically ill appearing male in no distress Head: laceration on right forehead Eyes: normal appearance, no scleral icterus. Neck: full ROM Respiratory: no respiratory distress. Cardiovascular: normal rate and rhythm, S1, S2. GI/Abdominal: soft, nontender, no guarding. Extremities: clean bandage over right hip, right hip tenderness. Neurological: CN II-XII intact, intact motor, intact sensation. Psychiatric: normal mood. Skin: warm, normal color Discharge diagnosis: Right hip fracture Secondary discharge diagnosis: Right lower lobe lung mass Atrial fibrillation Time Spent with Patient Time attestation: Total time spent providing and/or coordinating discharge services: EXAM Constitutional Vitals: Temp Pulse Resp BP Pulse Ox 97.6 F 60 22 158/88 96 02/01/21 08:00 02/01/21 08:00 02/01/21 08:00 02/01/21 08:00 02/01/21 08:00 Discharge Plan Patient/Caregiver Discharge Instructions Activity: as per physical therapy Diet: Regular Diet Prescriptions: New hydrocodone-acetaminophen 7.5-325 mg tablet 1 tab PO Q6H PRN (Reason: pain) Qty: 60 RF: 0 acetaminophen [Tylenol] 325 mg Tablet 650 mg PO Q6HP PRN (Reason: Per Pain Protocol/Fever > 101) Qty: 30 RF: 0 Eliquis 5 mg Tablet 5 mg PO BID Qty: 60 RF: 6 Continued pramipexole [Mirapex] 0.125 mg tablet See Rx Instructions PO .COMPLEX RF: 0 multivitamin Tablet 1 tab PO QDAY RF: 0 alfuzosin [Uroxatral] 10 mg tablet extended release 24 hr 10 mg PO QDAY RF: 0 duloxetine [Cymbalta] 60 mg capsule,delayed release(DR/EC) See Rx Instructions PO .COMPLEX RF: 0 lisinopril 20 mg tablet 10 mg PO RF: 0 atorvastatin 20 mg Tablet 20 mg PO QDAY RF: 0 loperamide [Imodium A-D] 2 mg Tablet 2 mg PO QID PRN (Reason: diarrhea ) RF: 0 lisinopril 10 mg Tablet 10 mg PO QDAY RF: 0 nitroglycerin 0.4 mg Tablet, Sublingual 0.4 mg SUBLINGUAL Q5M PRN (Reason: Chest Pain) RF: 0 oxycodone-acetaminophen [Percocet] 7.5-325 mg Tablet 1 tab PO Q6H PRN (Reason: Pain) RF: 0 fluoxetine 20 mg Capsule 20 mg PO DAILY RF: 0 finasteride 5 mg Tablet 5 mg PO DAILY RF: 0 melatonin 5 mg Tablet 5 mg PO HS PRN (Reason: Insomnia) RF: 0 omeprazole 20 mg Tablet,Disintegrat, Delay Rel 20 mg PO DAILY RF: 0 Discontinued aspirin 81 mg Tablet,Chewable 81 mg PO QDAY RF: 0 Follow Up Plan Follow up with: Becki Lopez ARNP [Primary Care Provider] - Madi Jimenes MD [Physician] - (Right lower lobe lung mass concerning for malignancy. ) Patient Disposition: Xfer SNF Rehab Potential: Fair I certify that the patient requires SNF services: Yes Overall status at discharge: patient is progressing back to baseline Discharge Orders: Discharge Order (Routine); Ordered 02/01/21 Ordered By: Marcel Pearce
[2021-02-01] MEDS: ACETAMINOPHEN 325 MG TABLET PO PRN (13:26)
[2021-02-01] MEDS: LACTATED RINGERS 1,000 ML IV SCH (14:11)
== END 2021-02-01 14:25 | DRG 482 ==
LOC: ED 16:43 → MEDSUR 21:40
PROVIDERS: ADMIT Internal Medicine; ATTEND Internal Medicine